=== PATIENT | male | born 1945 | race Caucasian/White ===

== ENCOUNTER 2025-06-01 04:33 | Inpatient (IN) | payer MEDICARE, SELFPAY ==
--- OUTSIDE RECORDS SUMMARY | 2020-07-20 04:00 | XMS_ITS | Continuity of Care Document ---
Author Organization [facility] [place] [address] [place] [address] Dr Nickerson [address] [place] [phone] Phone Care Team Providers Care Interactive Digital Media Specialist Name Role Phone Unavailable Unavailable Unavailable Allergies, Adverse Reactions, Alerts Substance Reaction Status Criticality No Known Allergies Active No Inform ation Medications Medication Instructions Dosage Effective Dates (start - stop) Status Comments prednisolone acetate 1 % eye drops,suspension instill 1 drop by ophthalmic route 4 times every day into operative eye for 2 weeks, then 2 times per day for 2 weeks, then stop - Active ketorolac 0.5 % eye drops instill 1 drop in operative eye 4 times every day for 2 weeks, then 2 times per day for 2 weeks, then stop - Active Vigamox 0.5 % eye drops instill 1 drop by ophthalmic route 4 times every day into operative eye for 2 weeks, then stop - No Longer Active ok to substitute Polytrim 5ml with same directions Procedures Procedure Date Post-op Follow-up Visit No Charge Refraction Post-op Follow-up Visit Remove Cataract, Post Op Care 0 Remove Cataract, Insert Lens,Comanaged O Steve Optic LensAR IOLMaster-Professional No Charge Refraction No Charge GDX Retina IOLMaster-Technical No Charge Orbscan Fundus Photography W/ Report Office/outpatient Visit, New Advance Directives Directive Yes / No Effective Date File Name No Information Encounters Encounter Description Practice Location Reason(s) For Visit Diagnoses Date Provider Providers Copied on Encounter [facility], [address] [place] [address] [address], [place], [place], [id number], tel:[phone] SEC [place] [employer] Professional Post-Op (chief complaint) Post op visit 0 No Information Referring Provider: Anshu Marshall OD, [employer] [address] [place] [address], [address]. tel:[phone] [facility], [address] [place] [address] [address], [place], [place], [id number], tel:[phone] SEC Javier SEPULVEDA Professional 1 week po Panoptix PCIOL OD (06/22/20) (chief complaint) Post op visit Jun- 0 No Information Referring Provider: Anshu Marshall OD, [employer] [address] [place] [address], [address]. tel:[phone] [facility], [address] [place] [address] [address], [place], [place], [id number], tel:[phone] SEC Javier SEPULVEDA Professional Post-Op (chief complaint) Post op visit Jun- 0 No Information Referring Provider: Anshu Marshall OD, [employer] [address] [place] [address], [address]. tel:[phone] [facility], [address] [place] [address] [address], [place], [place], [id number], [place] tel:[phone] [facility] No Information Jun- 0 Man Gomez. [address] [facility], [address], [place], [place], [id number], [place]. tel:[phone] Referring Provider: Anshu Marshall OD, [employer] [address] [place], [address]. tel:[phone] [facility], [address] [place] [address] [address], [place], [place], [id number], tel: SEC [facility] No Information 0 Man Gomez. [address] [facility], [facility] [place], [id number], . tel:1 Referring Provider: Anshu Marshall OD, [employer] [address] [place] [address], [address]. tel:[phone] [facility], [address] [place] [address] [address], [place], [place], [id number], tel: SEC Javier SEPULVEDA Professional No Information 0 Man Gomez. [address] [facility], [place], [place], [id number], . tel:[phone] Office/outpa tient Visit, [facility], [address] [place] [address] [address], [place], [place], [id number], tel: SEC Javier SEPULVEDA Professional Cataract evaluation (chief complaint) Combined forms of age-related cataract, bilateralVitr eous degeneration, left eyeHistory of eye injury 0 Man [address] [facility], [facility] [place], [id number], . tel: Referring Provider: Anshu Marshall OD, [employer] [address] [place] [address], [address]. tel:[phone] [facility], [address] [place] [address] [address], [place], [place], [id number], tel:[phone] SEC Javier SEPUL[employer] Professional No Information [address] Man Gomez[address] [facility], [facility] [place], [id number], . tel:[phone] Family History Family Member Type Diagnosis Age At Onset No Information Payers Payer name Insurance type Covered green party ID Authoriza tion(s) No Information Social History Type Description Quantity Date Captured Comments Alcohol Use Details moderate Caffeine Use Details No Tobacco Use Status Current non-smoker 20 Smoking Status Never smoker Non-Smoking Tobacco Use Details : No Details Available : No Details Available Sex Male Chief Complaint And Reason For Visit From encounter dated '07/20/2020 09:00'. Post-Op (chief complaint). Description: The 74 year old male presents for a 1 month post op CE withPanoptix IOL OD. Patient is using Pred and Ketorolac bid OD. Patient states OD is doing good. Reason For Referral Reason For Referral No Information Plan Of Treatment Date Type Action Status Patient Education Cataract Surgery: What to Expect at H~ completed History Of Present Illness Encounter Date Complaint History Of Prese nt Illness Post-Op The 74 year old male presents for a 1 month post op CE with Panoptix IOL OD. Patient is using Pred and Ketorolac bid OD. Patient states OD is doing good. 1 week po Panoptix P CIOL OD (06/22/20) The 74 year old male presents for evaluation of 1 week po Panoptix PCIOL OD (06/22/20) in the right eye. Pt reports good comfort and vision OD. Pt has been taking Pred, Ket, and Vig QID OD. Post-Op The 74 year old male presents for a 1 day post op CE with Panoptix IOL OD. Patient is using Pred, Vigamox and Ketorolac qid OD. Patient states OD feels scratchy today. Cataract evaluation The 74 year old male presents for evaluation of Cataract evaluation in the right > left. Hx of CAT OU. Pt denies any past ocular Sx, OU. Pt reports about 4 yrs ago he had a tree fall on him, broke ribs, vertebrae, and had 19 jaky in the back of his head. Pt reports he didn't have any VA changes immediately following that injury but about 1 yr after he started to have cloudiness that started at the top of his VA and progressed down over his VA in OD. Pt reports he has trouble reading street signs while driving, trouble recognizing people's faces, and trouble watching TV, OD>OS, x 3 yrs. Pt reports he doesn't use any gtts, OU. Functional Status Date Functional Assessmen t No Information Instructions Date Instruction Additional Infor riri Impression/Plan RTC in 3 weeks or sooner PRN Rel ated to Post op visit Impression/Plan Related to Post op visit Impression/Plan Impression/Plan Assessments Type Assessment Date assessment Post op visit Patient Care Teams Name Effective Dates (start - stop) Status Members No Information
--- OUTSIDE RECORDS SUMMARY | 2020-07-20 04:00 | XMS_ITS | Continuity of Care Document ---
Author Organization [facility] [place] [place] [address] [place] [address] Dr Nickerson [address] [place] [phone] Phone Care Team Providers Care Environmental Lead Name Role Phone Unavailable Unavailable Unavailable Allergies, [...] Diagnoses Date Provider Providers Copied on Encounter [facility], [address] [place] [address] [address], [place], [place], [id number], tel:[phone] SEC [place] [employer] Professional Post-Op (chief complaint) Post op visit 0 No Information Referring Provider: Anshu Marshall OD, [employer] [address] [place] [address], [address]. tel:[phone] [facility], [address] [place] [address] [address], [place], [place], [id number], tel:[phone] SEC Javier SEPULVEDA Professional 1 week po Panoptix PCIOL OD (06/22/20) (chief complaint) Post op visit Jun- 0 No Information Referring Provider: Anshu Marshall OD, [employer] [address] [place] [address], [address]. tel:[phone] [facility], [address] [place] [address] [address], [place], [place], [id number], tel:[phone] SEC Javier SEPULVEDA Professional Post-Op (chief complaint) Post op visit Jun- 0 No Information Referring Provider: Anshu Marshall OD, [employer] [address] [place] [address], [address]. tel:[phone] [facility], [address] [place] [address] [address], [place], [place], [id number], [place] tel:[phone] [facility] No Information Jun- 0 Man Gomez. [address] [facility], [place], [place], [address], [place]. tel:[phone] Referring Provider: Anshu Marshall OD, [employer] [address] [place], [address]. tel:[phone] [facility], [address] [place] [address] [address], [place], [place], [address], tel:0 SEC [employer] [facility] No Information 0 Man Gomez. [address] [facility], [facility], [id number], . tel:7 Referring Provider: Anshu Marshall OD, [employer] [address] [place] [address], [address]. tel:[phone] [facility], [address] [place] [address] [address], [place], [place], [address], tel: SEC Javier SEPULV[employer] Professional No Information 0 Man Gomez. [address] [facility], [place], [place], [address], . tel:[phone] Office/outpa tient Visit, [facility], [address] [place] [address] [address], [place], [place], [id number], tel: SEC Javier SEPULVEDA Professional Cataract evaluation (chief complaint) Combined forms of age-related cataract, bilateralVitr eous degeneration, left eyeHistory of eye injury 0 Man Gomez. [address] [facility], [facility] [place], [id number], . tel:2 Referring Provider: Anshu Marshall OD, [employer] [address] [place] [address], [address]. tel:[phone] [facility], [address] [place] [address] [address], [place], [place], [address], tel:[phone] SEC Javier [employer]UL[employer] Professional No Information 0 Man Gomez. [address] [facility], [facility], [id number], . tel:[phone] Family History Family Member Type Diagnosis Age At Onset No Information Payers Payer name Insurance type Covered democrat ID Authoriza tion(s) No Information Social History [...]
--- OUTSIDE RECORDS SUMMARY | 2020-07-20 04:00 | XMS_ITS | Continuity of Care Document ---
Author Organization [facility] [place] [address] [place] [address] Dr Nick[address] [place] [phone] Phone Care Team Providers Care Label Tacker Name Role Phone Unavailable Unavailable Unavailable Allergies, [...] Diagnoses Date Provider Providers Copied on Encounter [facility], [address] [place] [address] [address], [place], [place], [id number], tel:[phone] SEC [place] [employer] Professional Post-Op (chief complaint) Post op visit 0 No Information Referring Provider: Anshu Marshall OD, [employer] [address] [place] [address], [address]. tel:[phone] [facility], [address] [place] [address] [address], [place], [place], [id number], tel:[phone] SEC Javier SEPULVEDA Professional 1 week po Panoptix PCIOL OD (06/22/20) (chief complaint) Post op visit Jun- 0 No Information Referring Provider: Anshu Marshall OD, [employer] [address] [place] [address], [address]. tel:[phone] [facility], [address] [place] [address] [address], [place], [place], [id number], tel:[phone] SEC Javier SEPULVEDA Professional Post-Op (chief complaint) Post op visit Jun- 0 No Information Referring Provider: Anshu Marshall OD, [employer] [address] [place] [address], [address]. tel:[phone] [facility], [address] [place] [address] [address], [place], [place], [id number], [place] tel:[phone] [facility] No Information Jun- 0 Man Gomez. [address] [facility], [address], [place], [place], [address], [place]. tel:[phone] Referring Provider: Anshu Marshall OD, [employer] [address] [place], [address]. tel:[phone] [facility], [address] [place] [address] [address], [place], [place], [address], tel:1 SEC [facility] No Information 0 Man Gomez. [address] [facility], [facility], [address], . tel:1 Referring Provider: Anshu Marshall OD, [employer] [address] [place] [address], [address]. tel:[phone] [facility], [address] [place] [address] [address], [place], [place], [id number], tel: SEC Javier [employer] Professional No Information 0 Man Gomez. [address] [facility], [place], [place], [address], . tel:3 Office/outpa tient Visit, [facility], [address] [place] [address] [address], [place], [place], [id number], tel: SEC Javier SEPULVEDA Professional Cataract evaluation (chief complaint) Combined forms of age-related cataract, bilateralVitr eous degeneration, left eyeHistory of eye injury 0 Man Gomez. [address] [facility], [facility] [place], [address], . tel:5 Referring Provider: Anshu Marshall OD, [employer] [address] [place] [address], [address]. tel:[phone] [facility], [address] [place] [address] [address], [place], [place], [address], tel:0 SEC [facility] [employer] Professional No Information 0 Man Gomez. [address] [facility], [facility] [place], [id number], . tel:[phone] Family History Family Member Type Diagnosis Age At Onset No Information Payers Payer name Insurance type Covered constitution party ID Authoriza tion(s) No Information Social [...]
[2025-06-01] VITALS (22 sets, daily range): BP systolic 94–131; BP diastolic 54–83; PULSE 80–103; RESP 19–39; TEMP 36.3–36.9; O2SAT 91–97; BMI 34.5
--- NOTE | ~2025-06-01 | CT_ITS ---
EXAMINATION: CT brain wo magi, 06/01/2025 5:10 CDT HISTORY: CONFUSION COMPARISON: No comparisons available. Technique: Axial images obtained of the brain without contrast. One or more of the following dose reduction techniques were used: automated exposure control, adjustment of the mA and/or kV according to patient size, use of iterative reconstruction technique. 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 No acute infarct or hemorrhage Minimal left mastoid effusion. Severe right opacification of the right maxillary and frontal sinuses, underlying polyp formation suspected. No acute fracture. No significant facial or scalp soft tissue swelling evident. No radiopaque foreign body is seen. Impression: 1.No acute intracranial abnormality. Reviewed, dictated and finalized at location A. Impression: 1.No acute intracranial abnormality.
--- NOTE | ~2025-06-01 | XR_ITS ---
Examination: XR chest 1V portable Clinical History: Confused Comparison: 02/16/2017 Technique: Portable AP Findings: Cardiomegaly. Lungs clear. No acute bony abnormality. Chronic right rib fractures. IMPRESSION: 1. No acute cardiopulmonary findings given portable technique. Reviewed, dictated and finalized at location R.
--- OUTSIDE RECORDS SUMMARY | 2025-06-01 04:35 | XMS_ITS | Clinical Summary ---
Author Organization [facility] Address [address] [facility] [place] [address] Care Team Providers Care Bass Fisher Name Role Phone Neftalytaco Ramesh BYERS Primary Care Provider [phone] Source Comments [facility],non-owned Affiliates and Associated Physician Practices is amultiple site organization consisting of ambulatory clinics and hospital sitesin [place], [place], [place] and [place]. This disclosure is being madepursuant to the Care Everywhere program and may not contain all information available regarding this patient. Last updated 18.[facility] Allergies Active Allergy Reactions Criticality Noted Date Comments Amlodipine Base Nausea and/or Vomiting,Swelling,Dizziness 03/30/2024 Aspirin Swelling,Skin Reactions 03/30/2024 Tomato Urticaria,Swelling Medium 03/30/2024 Medications * Be aware that medications may not be up to date on this document. Alwaysverify current medications with the patient. aspirin (Aspirin) 81 MG chew tablet Take 1 (one) tablet by mouth once daily 4 Active atorvastatin (Lipitor) 40 MG tablet Take 1 (one) tablet by mouth at bedtime 4 Active carvedilol (Coreg) 12.5 MG tablet Take 1 (one) tablet by mouth 2 times daily with morning and evening meal 4 Active polyethylene glycol 3350 (Miralax) 17 g packet Take 17 (seventeen) g by mouth once daily as needed for Constipation 4 Active clopidogrel (plaVIX) 75 MG tablet Take 1 (one) tablet by mouth once daily 4 Active lisinopril (Prinivil; Zestril) 40 MG tablet TAKE ONE TABLET BY MOUTH ONCE DAILY 30 tablet 2 4 Active Active Problems Problem Noted Date Diagnosed Date Ischemic stroke 03/30/2024 Aphasia 03/29/2024 Encephalopathy 03/29/2024 Hypertensive emergency 03/29/2024 Umbilical hernia 03/29/2024 Social History Tobacco Use Types Packs/Day Years Used Date Smoking Tobacco: Unknown Tobacco Cessation:Counseling Given: Not Answered Alcohol Use Standard Drinks/Week Comments Not Currently 0 (1 standard drink = 0.6 oz pur e alcohol) Sex and Gender Information Value Date Recorded Sex Assigned at Not on file Legal Sex Male 6:34 PM CDT Gender Identity Not on file Sexual Orientation Not on file Last Filed Vital Signs Vital Sign Reading Time Taken Comments Blood Pressure 201/98 04/02/2024 7:45 PM CDT Pulse 55 04/02/2024 7:45 PM CDT Temperature 36.3 C (97.4 F) 04/02/2024 3:26 PM CDT Respiratory Rate 18 04/02/2024 3:26 PM CDT Oxygen Saturation 92% 04/02/2024 3:26 PM CDT Inhaled Oxygen Concentration - - Weight 113.4 kg (250 lb) 03/31/2024 7:00 AM CDT Height 182.9 cm (6') 03/31/2024 7:00 AM CDT Body Mass Index 33.91 03/31/2024 7:00 AM CDT Plan of Treatment Health Maintenance Due Date Last Done Comments MEDICARE AWV 12 MONTHS 1945 HEPATITIS C SCREENING 11/03/1965 DTAP/TDAP/TD VACCINES (1 - Tdap) 11/07/1966 PNEUMOCOCCAL VACCINE 50+ (1 of 1 - PCV) 11/07/1997 ZOSTER VACCINE (1 of 2) 11/07/1997 Respiratory Syncytial Virus (RSV) Vaccine Pt: or over 60 yrs (1 - 1-dose 75+ series) 11/07/2022 DEPRESSION SCREENING 09/09/2024 COVID-19 VACCINE ( - 2023-2 5 season) 2025 INFLUENZA VACCINE (#1) 2025 HEPATITIS B VACCINE Aged Out No longe r eligible based on patient's age to complete this topic HIB VACCINE Aged Out No longer eligi ble based on patient's age to complete this topic HPV VACCINE Aged Out No longer eligi ble based on patient's age to complete this topic MENINGOCOCCAL (Group B) VACC INE SHARED DECISION-MAKING Aged Out No longer eligibl e based on patient's age to complete this topic MENINGOCOCCAL GROUPS A/C/Y/W VACCINE Aged Out No longer eligible b ased on patient's age to complete this topic Insurance MEDICARE MEDICARE SUPPLEMENT PAYOR GENERIC Advance Directives * Full Code (Latest Code Status on File) Date Activated Date Inactivated Comments 04/03/2024 3:46 PM 04/24/2024 5:19 PM * Full Code Date Activated Date Inactivated Comments 03/29/2024 7:21 PM 04/02/2024 9:57 PM Care Teams Bass Fisher Relationship Specialty Start Date End Date Ramesh Forbes DO [address] [place] [address] PCP - General Family Medicine 04/02/24
--- OUTSIDE RECORDS SUMMARY | 2025-06-01 04:35 | XMS_ITS | Clinical Summary ---
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 Gender Identity Not on file Sexual Orientation Not on file Plan of Treatment Health Maintenance Due Date Last Done Comments Hepatitis C 11/07/1965 DTaP, Tdap and Td Vaccines ( 1 - Tdap) 11/07/1966 Pneumococcal Vaccine: 50+ Ye ars (1 of 1 - PCV) 11/07/1997 Zoster Vaccines (1 of 2) 11/07/1997 RSV Immunization or 60+ Years (1 - 1-dose 75+ series) 11/07/2022 COVID-19 Vaccine ( - 2023-2 5 season) 2025 Meningococcal B Vaccine Aged Out No l onger eligible based on patient's age to complete this topic Meningococcal Vaccine Aged Out No jn yossi eligible based on patient's age to complete this topic RSV Immunizations Under 20 Months Aged Out No longer eligible based on patient's age to complete this topic
--- NOTE | 2025-06-01 04:41 | ECG_ITS ---
Test Date: 2025-06-01 04:30:13 Measurements Intervals [place] Rate: 97 P: 34 WV: 243 QRS: -65 QRSD: 141 T: 109 QT: 389 QTc: 494 Interpretive Statements SINUS RHYTHM WITH FIRST DEGREE AV BLOCK LEFT ATRIAL ENLARGEMENT [-0.15mV P-WAVE IN V1/V2] LEFT ANTERIOR FASCICULAR BLOCK RIGHT BUNDLE BRANCH BLOCK [120+ ms QRS DURATION, UPRIGHT V1, 40+ ms S IN LEFT VENTRICULAR HYPERTROPHY ABNORMAL ECG No previous ECG available for comparison Electronically Signed On 06-01-2025 12:44:41 CDT by Job Gerardo M.D.
--- NOTE | 2025-06-01 04:43 | ED.AMS ---
HPI - Altered Mental Status General Chief Complaint: Altered Mental Status <Fredi Sin MD - Last Filed: 06/01/25 04:49> Stated Complaint: altered mental status <Fredi Sin MD - Last Filed: 06/01/25 04:49> Time Seen by Provider: 06/01/25 04:41 <Fredi Sin MD - Last Filed: 06/01/25 04:49> Source: EMS <Fredi Sin MD - Last Filed: 06/01/25 04:49> Mode of arrival: EMS <Fredi Sin MD - Last Filed: 06/01/25 04:49> Limitations: clinical condition <Fredi Sin MD - Last Filed: 06/01/25 04:49> History of Present Illness HPI narrative: 79-year-old with a history of stroke was brought in from home by EMS with a complains of altered mental status since yesterday afternoon reports he has been very lethargic all afternoon not responding very well to verbal stimuli from middle of the night finally called 911. Upon their arrival patient was found to be hypertensive after bolus of 600 mL he is now more alert. Not much of history can be obtained from patient <Fredi Sin MD - Last Filed: 06/01/25 04:49> MD complaint: altered mental status <Fredi Sin MD - Last Filed: 06/01/25 04:49> Onset (ago): day(s) (1) <Fredi Sin MD - Last Filed: 06/01/25 04:49> Time: 12:00 <Fredi Sin MD - Last Filed: 06/01/25 04:49> Timing confirmed by: spouse <Fredi Sin MD - Last Filed: 06/01/25 04:49> Severity: moderate <Fredi Sin MD - Last Filed: 06/01/25 04:49> Consistency of symptoms: constant <Fredi Sin MD - Last Filed: 06/01/25 04:49> Related Data Home Medications: Home Medications ?Medication ?Instructions ?Recorded ?Confirmed ?Last Taken ?Type No Home Medications 05/31/20 05/31/20 Unknown History <Fredi Sin MD - Last Filed: 06/01/25 04:49> Allergies/Adverse Reactions: Allergies Allergy/AdvReac Type Severity Reaction Status Date / Time tramadol Allergy Unknown Unknown Verified 06/01/25 05:00 aspirin AdvReac Severe Abdominal Verified 06/01/25 05:00 Pain <Fredi Sin MD - Last Filed: 06/01/25 04:49> Review of Systems Review of Systems: ROS unobtainable: Yes unobtainable due to mental status <Fredi Sni MD - Last Filed: 06/01/25 04:49> PMFSH Past Medical History Medical History: Medical History Benign essential hypertension No active medical problems <Fredi Sin MD - Last Filed: 06/01/25 04:49> Surgical History Surgical History: Surgical History No history of previous surgery <Fredi Sin MD - Last Filed: 06/01/25 04:49> Social History Social History: Social History Smoking status: Never smoker <Fredi Sin MD - Last Filed: 06/01/25 04:49> Exam Narrative: GENERAL:, well-nourished, and in no acute distress. HEAD: Normocephalic, atraumatic. EYES: PERRLA and EOMI. ENT: Nares clear, no rhinorrhea or epistaxis. Mucous membranes moist. NECK: Supple. CHEST: Clear to auscultation. No respiratory distress. HEART: Regular rate and rhythm. No murmur heard. Normal peripheral pulses. ABDOMEN: Soft, nontender, nondistended, normal active bowel sounds. has umbilical hernia EXTREMITIES: Normal range of motion. No edema. SKIN: Warm, dry, no rash. NEURO: No focal deficits. Alert <Fredi Sin MD - Last Filed: 06/01/25 04:49> Course Vital Signs Vital signs: Vital Signs Temperature 36.9 C 06/01/25 04:35 Pulse Rate 103 H 06/01/25 04:35 Respiratory Rate 28 H 06/01/25 04:35 Blood Pressure 116/73 06/01/25 04:35 Pulse Oximetry 94 06/01/25 04:35 Oxygen Delivery Nasal Cannula 06/01/25 04:35 Oxygen Flow Rate 2 06/01/25 04:35 Temperature 36.9 C 06/01/25 04:35 Pulse Rate 93 06/01/25 06:00 Respiratory Rate 33 H 06/01/25 06:00 Blood Pressure 114/79 06/01/25 06:00 Pulse Oximetry 94 06/01/25 06:00 Oxygen Delivery Nasal Cannula 06/01/25 04:35 Oxygen Flow Rate 2 06/01/25 04:35 <Fredi Sin MD - Last Filed: 06/01/25 04:49> Vital Signs Temperature 36.9 C 06/01/25 04:35 Pulse Rate 103 H 06/01/25 04:35 Respiratory Rate 28 H 06/01/25 04:35 Blood Pressure 116/73 06/01/25 04:35 Pulse Oximetry 94 06/01/25 04:35 Oxygen Delivery Nasal Cannula 06/01/25 04:35 Oxygen Flow Rate 2 06/01/25 04:35 Temperature 36.9 C 06/01/25 04:35 Pulse Rate 93 06/01/25 06:00 Respiratory Rate 33 H 06/01/25 06:00 Blood Pressure 114/79 06/01/25 06:00 Pulse Oximetry 94 06/01/25 06:00 Oxygen Delivery Nasal Cannula 06/01/25 04:35 Oxygen Flow Rate 2 06/01/25 04:35 <Escobar Ramos MD - Last Filed: 06/01/25 07:57> MDM - Altered Mental Status MDM Narrative Medical decision making narrative: patient was signed out to me at 5:00 a.m. Blood workup showed WBC 18.0, BUN 37, creatinine 3.8, lactic acid 4.0 This urinalysis showed 1+ leukocyte Estrace, WBC 16-20, 4+ bacteria CT head without contrast showed no acute abnormality Chest x-ray showed <Escobar Ramos MD - Last Filed: 06/01/25 07:57> Differential Diagnosis Differential diagnosis: Likely altered mental status, delirium, hyponatremia and sepsis <Fredi Sin MD - Last Filed: 06/01/25 04:49> Medical Records Attestation: I reviewed the patient's medical records. <Fredi Sin MD - Last Filed: 06/01/25 04:49> Lab Data Result diagrams: 06/01/25 04:54 06/01/25 04:54 <Fredi Sin MD - Last Filed: 06/01/25 04:49> Labs: Lab Results 06/01/25 06/01/25 Range/Units 04:54 05:34 WBC 18.0 H (4.8-10.8) K/mm3 RBC 3.84 L (4.70-6.10) M/mm3 Hgb 11.8 L (12.4-15.3) g/dL Hct 35.3 L (37.0-46.0) % MCV 91.9 (78.0-102.0) fL MCH 30.7 (27.0-31.0) pg MCHC 33.4 (32-36) g/dL RDW 13.1 (11.6-14.4) % Plt Count 186 (150-420) K/mm3 MPV 9.6 (8.7-11.0) fl Immature Gran % (Auto) Not Reportable Neut % (Auto) Not Reportable Lymph % (Auto) Not Reportable [place] % (Auto) Not Reportable Eos % (Auto) Not Reportable Baso % (Auto) Not Reportable Lymph # (Auto) Not Reportable [place] # (Auto) Not Reportable Eos # (Auto) Not Reportable Baso # (Auto) Not Reportable Abs Immat Gran (auto) Not Reportable Absolute Neuts (auto) Not Reportable Absolute Nucleated RBC Not Reportable Neutrophils % (Manual) 91 H (46-73) % Band Neutrophils % 0 (0-6) % Lymphocytes % (Manual) 4 L (18-44) % Monocytes % (Manual) 5 (3-9) % Eosinophils % (Manual) 0 L (1-6) % Basophils % (Manual) 0 (0-1) % Nucleated RBC % Not Reportable Abs Neuts (Manual) 16.38 H (1.3-6.7) K/mm3 Abs Lymphs (Manual) 0.72 L (1.1-4.5) K/mm3 Abs Monocytes (Manual) 0.90 (0.1-0.90) K/mm3 Absolute Eos (Manual) 0.00 L (0.02-0.50) K/mm3 Abs Basophils (Manual) 0.00 (0-0.1) K/mm3 Platelet Estimate Adequate (Adequate) Schistocytes Not Reportable PT 11.4 (9.50-12.1) Seconds INR 1.0 APTT 31.2 H (23.9-30.70) Sec Sodium 142 (137-145) mmol/L Potassium 4.5 (3.4-5.0) mmol/L Chloride 108 H (98-107) mmol/L Carbon Dioxide 21 L (22-30) mmol/L Anion Gap 13 H (4-12) mmol/L BUN 37 H (9-20) mg/dL Creatinine 3.80 H (0.7-1.3) mg/dL Estim Creat Clear Calc Not Reportable Estimated GFR 16 L (59 - ) Glucose 110 (65-110) mg/dL Calculated Osmolality 303 H (285-295) mOsm/kg Lactic Acid 4.0 H (0.4-2.0) mmol/L Calcium 8.8 (8.4-10.2) mg/dL Total Bilirubin 1.2 (0.2-1.3) mg/dL AST 68 H (17-59) U/L ALT 40 (6-50) U/L Alkaline Phosphatase 99 (38-126) U/L Troponin I 1.180 H* (0.000-0.034) ng/mL C-Reactive Protein > 9.0 H (<1.0) mg/dL Total Protein 7.1 (6.3-8.2) g/dL Albumin 3.5 (3.5-5.1) g/dL Urine Color Light yellow (Yellow) Urine Appearance Clear (Clear) Urine pH 5.5 (5.0-8.0) Ur Specific [place] 1.015 (1.010-1.020) Urine Protein Negative (Negative) Urine Glucose (UA) Negative (Negative) Urine Ketones Negative (Negative) Ur Blood (Man) Trace-intact H (Negative) Urine Nitrate Negative (Negative) Urine Bilirubin Negative (Negative) Urine Urobilinogen 0.2 (0.2-1.0) mg/dL Leukocyte Esterase Rfl 1+ H (Negative) ASHISH/UL Urine RBC 3-5 H (0-2) /hpf Urine WBC 16-20 H (0-3) /hpf Ur Squamous Epith Cells None seen (Few) /hpf Urine Bacteria 4+ H (None) /hpf <Fredi Sin MD - Last Filed: 06/01/25 04:49> Lab Results 06/01/25 06/01/25 Range/Units 04:54 05:34 WBC 18.0 H (4.8-10.8) K/mm3 RBC 3.84 L (4.70-6.10) M/mm3 Hgb 11.8 L (12.4-15.3) g/dL Hct 35.3 L (37.0-46.0) % MCV 91.9 (78.0-102.0) fL MCH 30.7 (27.0-31.0) pg MCHC 33.4 (32-36) g/dL RDW 13.1 (11.6-14.4) % Plt Count 186 (150-420) K/mm3 MPV 9.6 (8.7-11.0) fl Immature Gran % (Auto) Not Reportable Neut % (Auto) Not Reportable Lymph % (Auto) Not Reportable [place] % (Auto) Not Reportable Eos % (Auto) Not Reportable Baso % (Auto) Not Reportable Lymph # (Auto) Not Reportable [place] # (Auto) Not Reportable Eos # (Auto) Not Reportable Baso # (Auto) Not Reportable Abs Immat Gran (auto) Not Reportable Absolute Neuts (auto) Not Reportable Absolute Nucleated RBC Not Reportable Neutrophils % (Manual) 91 H (46-73) % Band Neutrophils % 0 (0-6) % Lymphocytes % (Manual) 4 L (18-44) % Monocytes % (Manual) 5 (3-9) % Eosinophils % (Manual) 0 L (1-6) % Basophils % (Manual) 0 (0-1) % Nucleated RBC % Not Reportable Abs Neuts (Manual) 16.38 H (1.3-6.7) K/mm3 Abs Lymphs (Manual) 0.72 L (1.1-4.5) K/mm3 Abs Monocytes (Manual) 0.90 (0.1-0.90) K/mm3 Absolute Eos (Manual) 0.00 L (0.02-0.50) K/mm3 Abs Basophils (Manual) 0.00 (0-0.1) K/mm3 Platelet Estimate Adequate (Adequate) Schistocytes Not Reportable PT 11.4 (9.50-12.1) Seconds INR 1.0 APTT 31.2 H (23.9-30.70) Sec Sodium 142 (137-145) mmol/L Potassium 4.5 (3.4-5.0) mmol/L Chloride 108 H (98-107) mmol/L Carbon Dioxide 21 L (22-30) mmol/L Anion Gap 13 H (4-12) mmol/L BUN 37 H (9-20) mg/dL Creatinine 3.80 H (0.7-1.3) mg/dL Estim Creat Clear Calc Not Reportable Estimated GFR 16 L (59 - ) Glucose 110 (65-110) mg/dL Calculated Osmolality 303 H (285-295) mOsm/kg Lactic Acid 4.0 H (0.4-2.0) mmol/L Calcium 8.8 (8.4-10.2) mg/dL Total Bilirubin 1.2 (0.2-1.3) mg/dL AST 68 H (17-59) U/L ALT 40 (6-50) U/L Alkaline Phosphatase 99 (38-126) U/L Troponin I 1.180 H* (0.000-0.034) ng/mL C-Reactive Protein > 9.0 H (<1.0) mg/dL Total Protein 7.1 (6.3-8.2) g/dL Albumin 3.5 (3.5-5.1) g/dL Urine Color Light yellow (Yellow) Urine Appearance Clear (Clear) Urine pH 5.5 (5.0-8.0) Ur Specific [place] 1.015 (1.010-1.020) Urine Protein Negative (Negative) Urine Glucose (UA) Negative (Negative) Urine Ketones Negative (Negative) Ur Blood (Man) Trace-intact H (Negative) Urine Nitrate Negative (Negative) Urine Bilirubin Negative (Negative) Urine Urobilinogen 0.2 (0.2-1.0) mg/dL Leukocyte Esterase Rfl 1+ H (Negative) ASHISH/UL Urine RBC 3-5 H (0-2) /hpf Urine WBC 16-20 H (0-3) /hpf Ur Squamous Epith Cells None seen (Few) /hpf Urine Bacteria 4+ H (None) /hpf <Escobar Ramos MD - Last Filed: 06/01/25 07:57> ECG Data EKG #1: ECG completion date: 06/01/25 <Fredi Sin MD - Last Filed: 06/01/25 04:49> ECG completion time: 04:30 <Fredi Sin MD - Last Filed: 06/01/25 04:49> EKG Interpretation: normal rate (97), no ectopy, no ST changes and LBBB <Fredi Sin MD - Last Filed: 06/01/25 04:49> Discharge Plan Discharge Clinical Impression: Non-ST elevation (NSTEMI) myocardial infarction, Renal failure, Sepsis, Comfort measures only status AMS (altered mental status) Qualifiers: Altered mental status type: unspecified Qualified Code(s): R41.82 - Altered mental status, unspecified <Fredi Sin MD - Last Filed: 06/01/25 04:49> Patient Disposition: Still a Patient <Fredi Sin MD - Last Filed: 06/01/25 04:49> Condition: Critical <Fredi Sin MD - Last Filed: 06/01/25 04:49> Additional Instructions: ADMIT TO HOSPITAL <Fredi Sin MD - Last Filed: 06/01/25 04:49> Patient Language: Slovak <Fredi Sin MD - Last Filed: 06/01/25 04:49> Prescriptions: No Action No Home Medications <Fredi Sin MD - Last Filed: 06/01/25 04:49> Follow-up/Referrals: UNKNOWN,DOCTOR [Primary Care Provider] <Fredi Sin MD - Last Filed: 06/01/25 04:49>
[2025-06-01 04:59] LABS: Hematocrit 35.3 % (37.0-46.0); Hemoglobin 11.8 g/dL (12.4-15.3); Mean Corpuscular HGB Conc 33.4 g/dL (32-36); Mean Corpuscular Hemoglobin 30.7 pg (27.0-31.0); Mean Corpuscular Volume 91.9 fL (78.0-102.0); Platelet Count Result 186 K/mm3 (150-420); Red Blood Count 3.84 M/mm3 (4.70-6.10); White Blood Count 18.0 K/mm3 (4.8-10.8)
[2025-06-01 05:10] LABS: Alanine Aminotransferase 40 U/L (6-50); Albumin Level 3.5 g/dL (3.5-5.1); Alkaline Phosphatase 99 U/L (38-126); Anion Gap 13 mmol/L (4-12); Aspartate Amino Transferase 68 U/L (17-59); Band Neutrophils Percent 0 % (0-6); Basophils Absolute Manual 0.00 K/mm3 (0-0.1); Basophils Percent Manual 0 % (0-1); Bilirubin,Total 1.2 mg/dL (0.2-1.3); Blood Urea Nitrogen 37 mg/dL (9-20); Calcium 8.8 mg/dL (8.4-10.2); Carbon Dioxide 21 mmol/L (22-30); Chloride 108 mmol/L (98-107); Eosinophils Absolute Manual 0.00 K/mm3 (0.02-0.50); Eosinophils Percent Manual 0 % (1-6); Estimated Glomerular Filt Rate 16; Glucose 110 mg/dL (65-110); Lymphocytes Absolute Manual 0.72 K/mm3 (1.1-4.5); Lymphocytes Percent Manual 4 % (18-44); Monocytes Absolute Manual 0.90 K/mm3 (0.1-0.90); Monocytes Percent Manual 5 % (3-9); Neutrophils Absolute Manual 16.38 K/mm3 (1.3-6.7); Neutrophils Percent Manual 91 % (46-73); Osmolality Calculated 303 mOsm/kg (285-295); Potassium 4.5 mmol/L (3.4-5.0); Sodium 142 mmol/L (137-145); Total Protein 7.1 g/dL (6.3-8.2)
[2025-06-01 05:19] LABS: INR 1.0; Prothrombin Time 11.4 Seconds (9.50-12.1)
--- OUTSIDE RECORDS SUMMARY | 2025-06-01 05:40 | XMS_ITS | Clinical Summary ---
Author Organization [facility] Address [address] [place] [address] Care Team Providers Care Manager Ship Name Role Phone Ramesh Forbes Primary Care Provider [phone] Allergies No known active allergies Medications aspirin 81 MG chewable tabletIndicati ons:Cerebrovas cular Accident Chew 1 tablet (81 mg total) in the morning. Indications: Cerebrovascular Accident or Stroke. 04/24/20 24 Active atorvastatin (LIPITOR) 40 MG tablet Take 1 tablet (40 mg total) by mouth nightly. 30 tablet 04/24/20 24 Active carvedilol (COREG) 6.25 MG tablet Take 1 tablet (6.25 mg total) by mouth 2 (two) times a day with Breakfast and Dinner. 60 tablet 04/24/20 24 Active cloNIDine (CATAPRES-TTS) 0.2 MG/24HR patch weekly Place 1 patch (0.2 mg total) on the skin once a week. 4 patch 04/26/20 24 Active clopidogrel (PLAVIX) 75 MG tabletIndicati ons:Cerebrovas cular Accident Take 1 tablet (75 mg total) by mouth in the morning. Indications: Cerebrovascular Accident or Stroke. 30 tablet 04/24/20 24 Active hydrALAZINE (APRESOLINE) 25 MG tablet Take 3 tablets (75 mg total) by mouth every 8 (eight) hours. 90 tablet 04/24/20 24 Active lisinopril (ZESTRIL) 40 MG tablet Take 1 tablet (40 mg total) by mouth in the morning. 30 tablet 04/24/20 24 Active vitamin B-6 (B-6) 50 MG tablet 1 tablet (50 mg total) by PO/Per Tube route in the morning. 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 04/03/2024 Hypertension 04/03/2024 Acute myocardial injury 04/03/2024 Metabolic encephalopathy 04/03/2024 Immunizations Immunization Administration Dates Next Due Pfizer SARS-CoV-2 Vaccination ([place]) 024(Deferred: Not available) Social History Tobacco Use Types Packs/Day Years Used Date Smoking Tobacco: Unknown Tobacco Cessation:Counseling Given: Not Answered Alcohol Use Standard Drinks/Week Comments Defer 0 (1 standard drink = 0.6 oz pur e alcohol) [facility] Utilities Answer Date Recorded In the past 12 months has [employer] electric, gas, oil, or water company threatened to shut off services in your home? No 04/02/2024 Social Connection and Isolat ion Panel [NHANES] Answer Date Recorded In a typical week, how many times do you talk on the phone with family, friends, or neighbors? Three times a week 04/02/2024 How often do you get togethe r with friends or relatives? Three times a week 04/02/2024 How often do you attend chur ch or nondenominational services? More than 4 times per year 04/02/2024 Do you belong to any clubs o r organizations such as muslim groups, unions, fraternal or athletic groups, or school groups? Yes 04/02/2024 How often do you attend meet ings of the clubs or organizations you belong to? More than 4 times per year 04/02/2024 Are you , , di vorced, , never , or living with a partner? 04/02/2024 AUDIT-C Answer Date Recorded Q1: How often do you have a drink containing alc ohol? Patient declined 04/04/2024 Q2: How many drinks containi ng alcohol do you have on a typical day when you are drinking? Patient declined 04/04/2024 Q3: How often do you have si x or more drinks on one occasion? Patient declined 04/04/2024 Overall Financial Resource Strain (CARDIA) Answe r Date Recorded How hard is it for you to pa y for the very basics like food, housing, medical care, and heating? Not hard at all 04/02/2024 [facility] Occupat ional Health - Occupational Stress Questionnaire Answer Date Recorded Do you feel stress - tense, restless, nervous, or anxious, or unable to sleep at night because your mind is troubled all the time - these days? Not at all 04/24/2024 Hunger Vital Sign Answer Date Recorded Within the past 12 months, y ou worried that your food would run out before you got the money to buy more. Never true 04/02/20 24 Within the past 12 months, t he food you bought just didn't last and you didn't have money to get more. Never true 04/02/2024 Housing Stability Vital Sign Answer Charles e Recorded In the last 12 months, was t here a time when you were not able to pay the mortgage or rent on time? No 04/02/2024 In the past 12 months, how m any times have you moved where you were living? 1 04/02/2024 At any time in the past 12 m [facility], were you homeless or living in a skilled nursing (including now)? No 04/02/2024 Domestic Abuse Assessment Answer Date R ecorded Do you feel safe in your relationships at home? Yes 04/04/2024 Physical Abuse Denies 04/04/2024 HRSN Domestic Abuse - Type of Abuse Not on file 04/04/2024 HRSN Domestic Abuse - Time Frame Not on file 04/04/2024 HRSN Domestic Abuse - Signs and Symptoms Not on file 04/04/2024 Verbal Abuse Denies 04/04/2024 HRSN Domestic Abuse - Reported To Not on file 04/04/2024 SDOH Transportation Source Answer Da te Recorded Has lack of transportation k ept you from medical appointments or from getting medications? No 04/23/2024 Has lack of transportation k ept you from meetings, work, or from getting things needed for daily living? No 04/23/2024 HRSN Depression PHQ-2 Answer Date Recor ded Feeling down, depressed, or hopeless 0 04/24/2024 Little interest or pleasure in doing things 0 04/24/2024 Sex and Gender Information Value Date Recorded Sex Assigned at Not on file Legal Sex Male 3:31 PM EDT Gender Identity Not on file Sexual Orientation Not on file Last Filed Vital Signs Vital Sign Reading Time Taken Comments Blood Pressure 150/85 04/24/2024 3:14 PM CDT Pulse 52 04/24/2024 3:14 PM CDT Temperature 36.1 C (97 F) 04/24/2024 12:28 PM CDT Respiratory Rate 18 04/24/2024 12:28 PM CDT Oxygen Saturation 95% 04/24/2024 12:28 PM CDT Inhaled Oxygen Concentration - - Weight 113.4 kg (250 lb) 04/02/2024 9:45 PM CDT Height 182.9 cm (6') 04/02/2024 9:45 PM CDT Body Mass Index 33.91 04/02/2024 9:45 PM CDT Plan of Treatment Health Maintenance Due Date Last Done Comments Annual Visit Topic 11/07/1946 Hepatitis C Screening 11/07/1965 DTaP/Tdap/Td Vaccines (1 - Tdap) 11/07/1966 Pneumococcal Vaccine: 65+ Ye ars (1 of 2 - PCV) 11/07/1997 HIB Vaccines Aged Out No longer eligi ble based on patient's age to complete this topic HPV Vaccines Aged Out No longer eligi ble based on patient's age to complete this topic Hepatitis A Vaccines Aged Out No long er eligible based on patient's age to complete this topic Hepatitis B Vaccines Aged Out No long er eligible based on patient's age to complete this topic IPV Vaccines Aged Out No longer eligi ble based on patient's age to complete this topic Meningococcal Vaccine Aged Out No jn yossi eligible based on patient's age to complete this topic Advance Directives * Full Resuscitation (Latest Code Status on File) Date Activated Date Inactivated Comments 04/02/2024 10:43 PM 04/24/2024 7:24 PM Question Answer Comments I have discussed this order with the patient or his/her surrogate and have received informed consent. Yes Care Teams Manager Ship Relationship Specialty Start Date End Date Ramesh Forbes [address] [place] [address] PCP - General 04/02/24
--- OUTSIDE RECORDS SUMMARY | 2025-06-01 05:40 | XMS_ITS | Clinical Summary ---
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
--- OUTSIDE RECORDS SUMMARY | 2025-06-01 05:40 | XMS_ITS | Clinical Summary ---
Author Organization [facility] [employer] Address [address] [facility] [place] [address] Care Team Providers Care Order Taker Name Role Phone Neftalytaco Ramesh BYERS Primary Care Provider [phone] Source Comments [facility] [employer],non-owned Affiliates and Associated Physician Practices is amultiple site organization consisting of ambulatory clinics and hospital sitesin [place], [place], [place] and [place]. This disclosure is being madepursuant to the Care Everywhere program and may not contain all information available regarding this patient. Last updated 18.[facility] [employer] Allergies Active Allergy Reactions Criticality Noted Date [...] 7:21 PM 04/02/2024 9:57 PM Care Teams Order Taker Relationship Specialty Start Date End Date Ramesh Forbes DO [address] [place] [id number] PCP - General Family Medicine 04/02/24
--- OUTSIDE RECORDS SUMMARY | 2025-06-01 05:41 | XMS_ITS | Clinical Summary ---
Author Organization [facility] Address [address] [place] [address] Phone Care Team Providers Care Data Analytics Specialist Name Role Phone Ramesh Forbes MD Primary Care Provider [phone] Social History Tobacco Use Types Packs/Day Years Used Date Smoking Tobacco: Never Assessed Sex and Gender Information Value Date Recorded Sex Assigned at Not on file Legal Sex Male 1:20 PM CDT Gender Identity Not on file Sexual Orientation Not on file Plan of Treatment Not on file Insurance MEDICARE Care Teams Data Analytics Specialist Relationship Specialty Start Date End Date Ramesh Forbes MD [address] [place] [id number] PCP - General Family Medicine 04/21/24
[2025-06-01] MEDS: SODIUM CHLORIDE 0.9% IV 1,000 ML 150 ML IV CONT (05:45)
[2025-06-01] MEDS: fentaNYL CITRATE INJ (*CRX) 100 MCG/2 ML VIAL 25 MCG IV PUSH (05:47)
[2025-06-01] MEDS: cefTRIAXone 1 GM in SODIUM CHLORIDE 0.9% IV 50 ML 100 ML IVPB (05:48)
[2025-06-01 05:50] LABS: Troponin I 1.180 ng/mL (0.000-0.034)
--- NOTE | 2025-06-01 06:00 | PC.NURSE ---
ERP DR robbins on phone w/ pts daughter and pts and another daughter in room for consultation on what wishes are going forward. Pt is awake but only reponds by moaning and moving his legs. Noted in [facility] cath bloody urine at this time. Dr Robbins explaining POC to family and gave family options on POC for either transfer to higher level of care of comfort measures w/ admit here to this hospital.
[2025-06-01 06:02] LABS: Add Urine Microscopic? YES; Appearance Urine Clear (Clear); CRP > 9.0 mg/dL (<1.0); Glucose Urine UA Negative (Negative); Leukocyte Esterase Ur 1+ LEU/UL (Negative); Nitrate Urine Negative (Negative); Specific Grav Ur 1.015 (1.010-1.020)
[2025-06-01 06:09] LABS: Partial Thromboplastin Time 31.2 Sec (23.9-30.70)
--- NOTE | 2025-06-01 06:19 | PC.NURSE ---
After conferring w/ daughters, pt and family want pt to stay here and receive comfort measures only. They report not wanting any heroic measures or other aggressive treatments. POC will be to admit pt here for care and comrfort.
--- NOTE | 2025-06-01 06:54 | PC.NURSE ---
Report given to YOLANDA Boone. Pt will be admitted to Rm [id number].
[2025-06-01] MEDS: MORPHINE SULFATE INJ (*CRX) 10 MG/ML AMP 4 MG IV PUSH (06:58)
--- OUTSIDE RECORDS SUMMARY | 2025-06-01 08:26 | XMS_ITS | Clinical Summary ---
Author Organization [facility] [email or web address] Address [address] [place] [address] Care Team Providers Care Flight/Transport Nurse Name Role Phone Neftalytaco Ramesh BYERS Primary Care Provider [phone] Source Comments [facility] [email or web address],non-owned Affiliates and Associated Physician Practices is amultiple site organization consisting of ambulatory clinics and hospital sitesin [place], [place], [place] and [place]. This disclosure is being madepursuant to the Care Everywhere program and may not contain all information available regarding this patient. Last updated 18.[facility] [email or web address] Allergies Active Allergy Reactions Criticality Noted Date [...] 7:21 PM 04/02/2024 9:57 PM Care Teams Flight/Transport Nurse Relationship Specialty Start Date End Date Ramehs Forbes DO [address] [place] [id number] PCP - General Family Medicine 04/02/24
--- OUTSIDE RECORDS SUMMARY | 2025-06-01 08:26 | XMS_ITS | Clinical Summary ---
Author Organization [facility] Address [address] [place] [address] Care Team Providers Care Statistical Analyst Name Role Phone Ramesh Forbes Primary Care Provider Allergies No known active allergies Medications aspirin [...] drink = 0.6 oz pur e alcohol) [facility] Utilities Answer Date Recorded In the past 12 months has [employer] electric, gas, oil, or water company threatened [...] often do you attend chur ch or jewish services? More than 4 times per year 04/02/2024 Do you belong to any clubs o r organizations such as temple groups, unions, fraternal or athletic groups, or [...] and heating? Not hard at all 04/02/2024 [facility] [place] of Occupat ional Health - Occupational Stress [...] any time in the past 12 [facility], were you homeless or living in a fpc (including now)? No 04/02/2024 Domestic Abuse Assessment [...] topic Meningococcal Vaccine Aged Out No jn ysosi eligible based on patient's age to complete this topic Advance Directives * Full Resuscitation (Latest Code Status on File) Date Activated Date Inactivated Comments 04/02/2024 10:43 PM 04/24/2024 7:24 PM Question Answer Comments I have discussed this order with the patient or his/her surrogate and have received informed consent. Yes Care Teams Statistical Analyst Relationship Specialty Start Date End Date Ramesh Forbes [address] [place] [address] PCP - General 04/02/24
--- OUTSIDE RECORDS SUMMARY | 2025-06-01 08:26 | XMS_ITS | Clinical Summary ---
Author Organization [facility] Address [address] [place] [address] Phone Care Team Providers Care Fruit Peeler Name Role Phone Ramesh Forbes MD Primary Care Provider [phone] Social History Tobacco Use Types Packs/Day Years Used Date Smoking Tobacco: Never Assessed Sex and Gender Information Value Date Recorded Sex Assigned at Not on file Legal Sex Male 1:20 PM CDT Gender Identity Not on file Sexual Orientation Not on file Plan of Treatment Not on file Insurance MEDICARE Care Teams Fruit Peeler Relationship Specialty Start Date End Date Ramesh Forbes MD [address] [place] [id number] PCP - General Family Medicine 04/21/24
--- OUTSIDE RECORDS SUMMARY | 2025-06-01 08:26 | XMS_ITS | Clinical Summary ---
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
--- NOTE | 2025-06-01 08:34 | ADMGEN ---
This patient, Ralph Greer, was admitted to 2nd Floor Room 204-1. Patient/family oriented to hospital policies and general routines including ID bracelet, bed and alarms, visiting hours, pain management, procedures, bathroom and other care routines, personal items, smoking policy, room service/diet, and visiting hours. Information on how to activate the Rapid Response Team has been discussed. Patient/Family are encouraged to report perceived risks to care and to ask questions if they do not understand what they are told or what they should do. Brought to floor from ED, family x3 by his side.
[2025-06-01] MEDS: MORPHINE SULFATE (*CRX) 2 MG/ML INJ IV PUSH (11:06)
[2025-06-01] MEDS: SODIUM CHLORIDE 0.9% IV 1,000 ML 75 ML IV CONT (11:42)
[2025-06-01 12:35] LABS: Troponin I 1.490 ng/mL (0.000-0.034)
--- NOTE | 2025-06-01 13:15 | PM.IMHP ---
H&P: HPI History of Present Illness Date/Time: 06/01/25 13:15 Chief Complaint: Unresponsive Narrative: This is a 79 year old male that was brought in via ambulance with a steady decline for the past week . Patient was noted to be unresponsive for at least 24 hour prior to arrival to the hospital. Patient has a pmh per of hypertension he is seen by a [facility] Health Doctor and he does not go in to be seen. on arrival pt found to be uroseptic with end stage renal disease with a WBC 18.0 , RBC 3.04. Hgb11.8, hct 35.3, Plt adequate , sodium 142, potassium 4.5, chloride 21, BUN 37, Cr 3.80, GFR 16, Troponin 1.180, Lactic 4.9 Urine is bloody only, Ct scan showed no acute abnormality. Pt is unresponsive with loud snoring noted moments of grabbing at thing ungracefully. Pt is a DNR, DNI discussion with the family on what goals of care are. Offered to transfer with the understanding that this may not change his prognosis or maintain him. Family would like for use to treat infection and she how he fairs. Discussed hospice and the real possibility that he is not going to make it. states she understand and they would like to continue with the IV fluids and IV antibiotic and see if he improves. She would like for him to be kept comfortable he will receive pain medication in which I have switched to oral roxanol. [facility] Past Medical History Medical History (Updated 06/01/25 @ 09:06 by JIMMY POOL, YOLANDA) Benign essential hypertension No active medical problems Surgical History Surgical History No history of previous surgery Family History Family History (Updated 06/01/25 @ 09:05 by JIMMY POOL RN) Other Unknown family medical history Social History Social History Smoking status: Former smoker Second hand tobacco smoke exposure: No Alcohol intake: former Substance use: never Substance use type: does not use Lack of Transportation: No Lack of Food: Never True Current Housing: I Have Housing Concerned About Future Housing: No Difficulty Paying Gas/Electric Bills: No Difficulty Paying for Meds: No Currently Unemployed: No Education: Don't Know Difficulty w/ Childcare or Family Care: No Living arrangements: with family Occupation/Education: retired Gender identity (if verbalized by the patient): Male Sexual Orientation (if Verbalized by the Patient): Straight or Heterosexual Spiritual care concerns: No Meds Home Medications and Allergies Home Medications ?Medication ?Instructions ?Recorded ?Confirmed ?Type atorvastatin 40 mg tablet 40 mg PO HS 06/01/25 06/01/25 History carvedilol 6.25 mg tablet 6.25 mg PO Q12H 06/01/25 06/01/25 History clonidine 0.2 mg/24 hr weekly 1 patch transdermal WEEKLY 06/01/25 06/01/25 History transdermal patch clopidogrel 75 mg tablet 75 mg PO DAILY 06/01/25 06/01/25 History hydralazine 25 mg tablet 25 mg PO Q8H 06/01/25 06/01/25 History lisinopril 40 mg tablet 40 mg PO DAILY 06/01/25 06/01/25 History memantine 10 mg tablet 5 mg PO BID 06/01/25 06/01/25 History pyridoxine (vitamin B6) 50 mg 50 mg PO DAILY 06/01/25 06/01/25 History capsule Allergies Allergy/AdvReac Type Severity Reaction Status Date / Time tramadol Allergy Unknown Unknown Verified 06/01/25 05:00 Vital Signs Vital Signs - 24 hr 06/01/25 04:35 06/01/25 04:35 06/01/25 04:35 Temperature 98.4 F Pulse Rate 103 H 103 H 103 H Respiratory Rate 28 H 28 H Blood Pressure 116/73 120/69 Pulse Oximetry 94 93 Oxygen Delivery Nasal Cannula Oxygen Flow Rate 2 06/01/25 04:35 06/01/25 04:47 06/01/25 05:00 Temperature Pulse Rate 95 95 Respiratory Rate 36 H 31 H Blood Pressure Pulse Oximetry 93 91 93 Oxygen Delivery Nasal Cannula Oxygen Flow Rate 2 06/01/25 05:01 06/01/25 05:23 06/01/25 05:24 Temperature Pulse Rate 99 102 H Respiratory Rate 31 H 34 H Blood Pressure 125/83 127/76 Pulse Oximetry 94 92 91 Oxygen Delivery Oxygen Flow Rate 06/01/25 05:30 06/01/25 05:45 06/01/25 06:00 Temperature Pulse Rate 94 97 93 Respiratory Rate 30 H 30 H 33 H Blood Pressure 120/69 124/79 114/79 Pulse Oximetry 92 94 Oxygen Delivery Oxygen Flow Rate 06/01/25 06:15 06/01/25 06:16 06/01/25 06:30 Temperature Pulse Rate 98 98 92 Respiratory Rate 39 H 31 H 19 Blood Pressure 131/75 Pulse Oximetry 95 Oxygen Delivery Oxygen Flow Rate 06/01/25 06:32 06/01/25 06:45 06/01/25 06:46 Temperature Pulse Rate 93 89 91 Respiratory Rate 19 29 H 29 H Blood Pressure 129/74 117/73 Pulse Oximetry 93 94 94 Oxygen Delivery Oxygen Flow Rate 06/01/25 07:00 06/01/25 07:01 06/01/25 07:22 Temperature 98.4 F Pulse Rate 87 86 84 Respiratory Rate 30 H 34 H 22 H Blood Pressure 121/70 126/71 Pulse Oximetry 95 95 95 Oxygen Delivery Room Air Oxygen Flow Rate 06/01/25 08:00 Temperature 97.3 F L Pulse Rate 82 Respiratory Rate 30 H Blood Pressure 96/82 L Pulse Oximetry 95 Oxygen Delivery Nasal Cannula Oxygen Flow Rate 2 Exam Const: General: uncomfortable HENMT: Mouth: Yes moist mucous membranes Eyes: Pupils: Equal, round and reactive pupils present (Sluggish to respond to light ) Resp: Auscultation: diminished lung sounds Other: Rapid breathing with snoring noted Cardio: Rhythm: abnormal rhythm GI: GI Palp: Yes Soft to palpation and Yes Guarding due to palpation present (GI) Auscultation: normal bowel sounds Urinary Catheter: Urinary Catheter: patent and draining, urine dark and other (Bloody urine ) Skin: Other: Ashen in color Neuro: Other: Does not respond appropiately and does not speak and does not follow command Extrem: General: edema and pedal edema Psych: Other: obtundnate H&P: Results Labs Labs: Short CBC 06/01/25 Range/Units 04:54 WBC 18.0 H (4.8-10.8) K/mm3 Hgb 11.8 L (12.4-15.3) g/dL Hct 35.3 L (37.0-46.0) % Plt Count 186 (150-420) K/mm3 BMP 06/01/25 04:54 Sodium 142 Potassium 4.5 Chloride 108 H Carbon Dioxide 21 L BUN 37 H Creatinine 3.80 H Glucose 110 Calcium 8.8 Cardiac Enzymes 06/01/25 06/01/25 Range/Units 04:54 12:00 Troponin I 1.180 H* 1.490 H* D (0.000-0.034) ng/mL Liver Function 06/01/25 Range/Units 04:54 Total Bilirubin 1.2 (0.2-1.3) mg/dL AST 68 H (17-59) U/L ALT 40 (6-50) U/L Alkaline Phosphatase 99 (38-126) U/L Albumin 3.5 (3.5-5.1) g/dL Urine 06/01/25 Range/Units 05:34 Urine Color Light yellow (Yellow) Urine Appearance Clear (Clear) Urine pH 5.5 (5.0-8.0) Ur Specific [place] 1.015 (1.010-1.020) Urine Protein Negative (Negative) Urine Glucose (UA) Negative (Negative) Assessment and Plan Assessment and plan (1) Comfort measures only status: Code(s): Z51.5 - Encounter for palliative care Status: Acute Assessment and Plan: - meet with hospice - Explained to family pt is dying at this point -DNR/DNI - Roxanol - Ativan shortage did not order (2) Sepsis: Code(s): A41.9 - Sepsis, unspecified organism Status: Acute Assessment and Plan: - IV fluids -IV rocephen -Avoid Nephrotoxic medication - Blood culture pending - Turn Q 2 hours -WBC 18--> - Lactic 4.4-->4.0 (3) Renal failure: Code(s): N19 - Unspecified kidney failure Status: Acute Assessment and Plan: - Avoid Nephrotoxic medication # see number 2 (4) Non-ST elevation (NSTEMI) myocardial infarction: Code(s): I21.4 - Non-ST elevation (NSTEMI) myocardial infarction Status: Acute Assessment and Plan: - TNI 1.18 --->1.4 - Family aware there is no Cardiology - We will not be addressing cardiac NSTEMI as we are making pt comfortable and they have declined transfer Hospitalist MIPS Advance Care Plan I have confirmed that the patient's Advanced Care Plan is present, code status is documented, or surrogate decision maker is listed in patient medical record.: Yes Medication Reconciliation I have utilized all available resources to obtain, update and review the patients current medications (includes all prescriptions, OTC, herbals, cannabis, and nutritional supplements).: Yes The patient is not eligible for med reconciliation; the patient is in a emergent medical situation where delaying treatment would jeopardize the patients health.: No
[2025-06-01] MEDS: MORPHINE SULFATE ORAL CONC SOL (*CRX) 10 MG/0.5 ML SYRINGE 5 MG PO (20:53)
--- NOTE | 2025-06-01 22:37 | PC.NURSE ---
Patient opens eyes occasionally when turned but goes back to sleep immediately. Pt t/p Q2 hours. Madden cath patent and draining pure red urine. Bed alarm on. SR up. at bedside.
[2025-06-02] VITALS: BP 116/70; PULSE 102; RESP 36; TEMP 36.3; O2SAT 92
--- NOTE | 2025-06-02 00:30 | PC.NURSE ---
Pt resting quietly and was turned and repositioned to his left side. New bag of IV fluid infusing as ordered.
[2025-06-02] MEDS: SODIUM CHLORIDE 0.9% IV 1,000 ML 75 ML IV CONT (00:31)
--- NOTE | 2025-06-02 02:34 | PC.NURSE ---
Pt turned and repositioned to his right side.
--- NOTE | 2025-06-02 04:38 | PC.NURSE ---
Pt turned and repositioned to his side. Madden continues to drain bloody urine.
[2025-06-02 05:30] VITALS: O2SAT 94
[2025-06-02 05:34] LABS: Hematocrit 29.6 % (37.0-46.0); Hemoglobin 9.8 g/dL (12.4-15.3); Mean Corpuscular HGB Conc 33.1 g/dL (32-36); Mean Corpuscular Hemoglobin 30.7 pg (27.0-31.0); Mean Corpuscular Volume 92.8 fL (78.0-102.0); Platelet Count Result 113 K/mm3 (150-420); Red Blood Count 3.19 M/mm3 (4.70-6.10); White Blood Count 12.4 K/mm3 (4.8-10.8)
[2025-06-02 05:49] LABS: Anion Gap 12 mmol/L (4-12); Blood Urea Nitrogen 62 mg/dL (9-20); Calcium 8.4 mg/dL (8.4-10.2); Carbon Dioxide 21 mmol/L (22-30); Chloride 110 mmol/L (98-107); Estimated CRCL calculation 14 ml/min; Estimated Glomerular Filt Rate 10; Glucose 95 mg/dL (65-110); Osmolality Calculated 313 mOsm/kg (285-295); Potassium 5.2 mmol/L (3.4-5.0); Sodium 143 mmol/L (137-145)
[2025-06-02] MEDS: MORPHINE SULFATE ORAL CONC SOL (*CRX) 10 MG/0.5 ML SYRINGE 5 MG PO (05:55)
--- NOTE | 2025-06-02 06:00 | PC.NURSE ---
Pt given roxanol 5 mg po to relieve discomfort.
[2025-06-02] MEDS: cefTRIAXone 1 GM in SODIUM CHLORIDE 0.9% IV 50 ML 100 ML IVPB (07:40)
[2025-06-02 08:00] VITALS: BP 142/81; PULSE 93; RESP 36; TEMP 37; O2SAT 94
[2025-06-02] MEDS: LORazepam (*CRX) 2 MG/ML ORAL CONCENTRATE 1 ML SYRINGE 1 MG SUBLINGUAL ×3 (09:57→14:14)
[2025-06-02] MEDS: MORPHINE SULFATE (*CRX) 2 MG/ML INJ IV PUSH ×3 (10:44→14:14)
--- NOTE | 2025-06-02 11:14 | PC.NURSE ---
Bladder irrigation preformed at 1010, 100 cc sterile water irrigated into the bladder, 100 cc of bright red tinged urine drained from bladder.
--- NOTE | 2025-06-02 11:17 | PC.NURSE ---
today at 1100 bladder scan preformed. 126 cc urine is in bladder at this time. RESIDENT SURGEON aware
--- NOTE | 2025-06-02 12:20 | PC.NURSE ---
Lorazepam given for respirations of 34
--- NOTE | 2025-06-02 14:31 | PC.NURSE ---
Respirations 34, HR 74. Scheduled Morphine and PRN Lorazepam given. Patient turned and repositioned at this time.
--- NOTE | 2025-06-02 15:02 | PC.NURSE ---
Report received from David and this RN assumed care of pt at this time. Pt has just informed that pt qualifies for hospice in pt admission and that hospice nurse will arrive to admit pt and speak with family. Pt's spouse and two daughters currently at bedside. Pt currently laying on left side with wedge under right side. Pillow propped under right arm and between legs. Heels elevated and hanging off end of pillow. Madden catheter intact with blood present. Family denies any needs/concerns at this time. Hospital bed remains in low locked position and call light within families reach.
--- NOTE | 2025-06-02 15:37 | P.DS_ITS ---
DS: Admitting Diagnosis Discharge Date 06/02/2025 Admitting Diagnosis Sepsis with septic shock/acute renal failure/acute respiratory failure with hypoxia DS: Discharge Diagnosis Discharge Diagnosis (1) Sepsis without septic shock: Code(s): A41.9 - Sepsis, unspecified organism Status: Acute (2) Acute respiratory failure with hypoxia: Code(s): J96.01 - Acute respiratory failure with hypoxia Status: Acute (3) Comfort measures only status: Code(s): Z51.5 - Encounter for palliative care Status: Acute Assessment and Plan: Patient on admission unresponsive with acute respiratory failure with hypoxia and sepsis with septic shock previous provider had long discussion with family at which time they had requested DNR DNI with comfort measures only IV fluids and IV antibiotics. Followed up with patient's family the following day patient with worsening renal failure remained unresponsive patient's spouse and daughter at bedside both requested consult to hospice care. (4) Sepsis: Code(s): A41.9 - Sepsis, unspecified organism Status: Acute (5) Renal failure: Code(s): N19 - Unspecified kidney failure Status: Acute (6) Non-ST elevation (NSTEMI) myocardial infarction: Code(s): I21.4 - Non-ST elevation (NSTEMI) myocardial infarction Status: Acute DS: Summary Hospital Course Reason for hospitalization: Sepsis with septic shock/acute respiratory failure with hypoxia/acute renal failure Hospital Course: Admission: Medical Chart: Patient was a 79 year old male that was brought in via ambulance with a steady decline for the past week . Patient was noted to be unresponsive for at least 24 hour prior to arrival to the hospital. Patient has a pmh per of hypertension he is seen by a [facility] Health Doctor and he does not go in to be seen. on arrival pt found to have sepsis with septic shock secondary to UTI with acute renal failure patient with no history of CKD. In the ED: WBC 18.0 , RBC 3.04. Hgb11.8, hct 35.3, Plt adequate , sodium 142, potassium 4.5, chloride 21, BUN 37, Cr 3.80, GFR 16, Troponin 1.180, Lactic 4.9 Urine is bloody only, Ct scan showed no acute abnormality. Pt is unresponsive with loud snoring noted moments of grabbing at thing ungracefully. Pt is a DNR, DNI discussion with the family on what goals of care by previous provider. Offered to transfer with the understanding that this may not change his prognosis or maintain him. Family would like for use to treat infection and she how he fairs. Discussed hospice and the real possibility that he is not going to make it. states she understand and they would like to continue with the IV fluids and IV antibiotic and see if he improves. She would like for him to be kept comfortable he will receive pain medication at which time he was placed comfort measures only status. Patient was seen assessed following day still unresponsive with acute respiratory failure with hypoxia and sepsis with septic shock previous provider had long discussion with family at which time they had requested DNR DNI with comfort measures only IV fluids and IV antibiotics. Followed up with patient's family regarding patient's worsening renal failure and poor prognosis which time they have requested a consult to hospice care. Patient was then discharged to inpatient hospice. Status at Discharge Functional status at discharge: bed bound Overall status at discharge: other Time Spent with Patient Time attestation: Total time spent providing and/or coordinating discharge services: Time spent: Greater than 30 minutes Exam Const: General: uncomfortable Other: Unresponsive on the response to painful stimuli HENMT: Mouth: Yes dry mucous membranes Eyes: Pupils: Equal, round and reactive pupils present (Sluggish to respond to light ) Resp: Effort & Inspection: labored, nasal flaring, respiratory distress, retractions and tachypneic Auscultation: diminished lung sounds Cardio: Rhythm: abnormal rhythm GI: Auscultation: normal bowel sounds Urinary Catheter: Urinary Catheter: patent and draining, urine dark, urine red and other (Bloody urine ) Skin: Other: Ashen in color Neuro: Other: Does not respond appropiately and does not speak and does not follow command Extrem: General: edema and pedal edema Psych: Other: obtundnate DS: Data Data Completed and Pending Labs on day of discharge: Labs from last 24 hours 06/02/25 05:18 WBC 12.4 H RBC 3.19 L Hgb 9.8 L Hct 29.6 L MCV 92.8 MCH 30.7 MCHC 33.1 RDW 13.5 Plt Count 113 L MPV 10.2 Sodium 143 Potassium 5.2 H Chloride 110 H Carbon Dioxide 21 L Anion Gap 12 BUN 62 H D Creatinine 5.49 H Estim Creat Clear Calc 14 Estimated GFR 10 L Glucose 95 Calculated Osmolality 313 H Calcium 8.4 Preliminary micro results at discharge 06/01/25 05:34 Blood Culture - Preliminary Blood Gram negative bacilli isolated 06/01/25 05:34 Blood Culture - Preliminary Blood Gram negative bacilli isolated Discharge Plan Discharge Attending physician on discharge: William Vale Consulting providers: Alyce Anderson Discharging Clinician: Alyce Anderson Anticipated Discharge Date/Time: 06/02/25 15:47 Patient Disposition: Hospice - Medical Facility Patient Language: Portuguese Stand Alone Forms: General Discharge Information Discharge Medications: New lorazepam [Lorazepam Intensol] 2 mg/mL Concentrate 1 mg sublingual Q2H PRN (Reason: Anxiety) Qty: 1 0RF morphine 2 mg/mL Syringe 2 mg IV PUSH Q2H Qty: 1 0RF atropine 1 % Drops 1 drp sublingual Q4H PRN (Reason: Secretions) Qty: 1 0RF Discontinued atorvastatin 40 mg tablet 40 mg PO HS carvedilol 6.25 mg tablet 6.25 mg PO Q12H clonidine 0.2 mg/24 hr patch weekly 1 patch transdermal WEEKLY hydralazine 25 mg tablet 25 mg PO Q8H lisinopril 40 mg tablet 40 mg PO DAILY memantine 10 mg tablet 5 mg PO BID clopidogrel 75 mg tablet 75 mg PO DAILY pyridoxine (vitamin B6) 50 mg capsule 50 mg PO DAILY Date of admission: 06/01/25 06:45 Primary Care Provider: UNKNOWN,DOCTOR Admitting Provider: William Vale Attending physician on admission: William Vale Condition: Terminal Quality -Patient's previous records reviewed on admission -ER notes reviewed in detail on admission -discussed all findings and current treatment plan with patient/Family/POA -Patient's disposition for safe discharge discussed with case loader operator Dictation performed by Telepath direct speech recognition software, therefore microsoft net developer variants and typographical errors may occur. Hospitalist MIPS Heart Failure (Exclusion) Patient has history of Heart Transplant or Left Ventricular Assistive Device?: No IF YES, STOP HERE Heart Failure (Qualifier) Patient has current or prior documentation of LVEF less than or equal to 40%, or mod/servere depressed LVSF?: No IF NO, STOP HERE
--- OUTSIDE RECORDS SUMMARY | 2025-06-09 19:00 | XMS_ITS | Clinical Summary ---
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 Role Phone DIXIE SIERRA, CARMELITA Unavailable Unavailable SETH BRYAN, CICI Unavailable Unavailjean carlos MEYER RN, CLAIR Unavailable Unavailable Payers Payer Name Policy Type Policy Number Effective Date Expira tion Date MEDICARE - [facility] [id number] Problems Condition Name Condition Details Condition Category Status Onset Date Resolution Date Last Treatment Date Treating Clinician Comments ESSENTIAL (PRIMARY) HYPERTENSION Active 09-09 00:00: 00 UNSPECIFIED DEMENTIA, MODERATE, WITH AGITATION Active 09-09 00:00: 00 UNSPECIFIED DEMENTIA, MODERATE, WITH MOOD DISTURBANCE Active 09-09 00:00: 00 UNSPECIFIED ATRIAL FIBRILLATION Active 09-09 00:00: 00 APHASIA FOLLOWING CEREBRAL INFARCTION Active 09-09 00:00: 00 HYPERLIPIDEM IA, UNSPECIFIED Active 09-09 00:00: 00 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 09-09 00:00: 00 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 Ordering Clinician Indication Dosage Frequency Signature (SIG) Comments Components lisinopril 40 mg tablet 04-02 00:00: 00 04-25 00:00 :00 No [id number] Per instruc tions Per instructio ns (route: oral) Med Classific ation: Cardiovas cular Therapy Agents aspirin 81 mg chewable tablet 04-25 00:00: 00 11-10 23:59 :00 No [id number] 1 tablet DAILY 1 tablet DAILY (route: oral) Med Classific ation: Hematolog ical Agents atorvastati n 40 mg tablet 04-25 00:00: 00 11-10 23:59 :00 No [id number] 1 tablet BEDTIME 1 tablet BEDTIME (route: oral) Med Classific ation: Cardiovas cular Therapy Agents carvedilol 6.25 mg tablet 04-25 00:00: 00 11-10 23:59 :00 No [id number] 1 tablet 2 TIMES DAILY 1 tablet 2 TIMES DAILY (route: oral) Med Classific ation: Cardiovas cular Therapy Agents clonidine 0.2 mg/24 hr weekly transdermal patch 04-25 00:00: 00 11-10 23:59 :00 No [id number] 1 patch, transde rmal weekly WEEKLY 1 patch, transderma l weekly WEEKLY (route: transderma l) Med Classific ation: Cardiovas cular Therapy Agents divalproex 125 mg capsule,del ayed release sprinkle 04-25 00:00: 00 11-10 23:59 :00 No [id number] 2 capsule 3 TIMES DAILY 2 capsule 3 TIMES DAILY (route: oral) Med Classific ation: Central Nervous System Agents hydralazine 25 mg tablet 04-25 00:00: 00 05-12 23:59 :00 No [id number] 3 tablet EVERY 8 HOURS 3 tablet EVERY 8 HOURS (route: oral) Med Classific ation: Cardiovas cular Therapy Agents lisinopril 40 mg tablet 04-25 00:00: 00 11-10 23:59 :00 No [id number] 1 tablet DAILY 1 tablet DAILY (route: oral) Med Classific ation: Cardiovas cular Therapy Agents memantine 10 mg tablet 04-25 00:00: 11-10 23:59 :00 No [id number] 0.5-1 tablet 2 TIMES DAILY 0.5-1 tablet 2 TIMES DAILY (route: oral) Med Classific ation: Cognitive Disorder Therapy olanzapine 5 mg disintegrat ing tablet 04-25 00:00: 00 11-10 23:59 :00 No [id number] 1 tablet 3 TIMES DAILY 1 tablet 3 TIMES DAILY (route: oral) Med Classific ation: Central Nervous System Agents Plavix 75 mg tablet 04-25 00:00: 00 11-10 23:59 :00 No [id number] 1 tablet DAILY 1 tablet DAILY (route: oral) Med Classific ation: Hematolog ical Agents pyridoxine (vitamin B6) 50 mg tablet 04-25 00:00: 00 11-10 23:59 :00 No [id number] 1 tablet DAILY 1 tablet DAILY (route: oral) Med Classific ation: Electroly te Balance-N utritiona l Products hydralazine 25 mg tablet 05-12 00:00: 00 11-10 23:59 :00 No [id number] 1 tablet EVERY 8 HOURS 1 tablet EVERY 8 HOURS (route: oral) Med Classific ation: Cardiovas cular Therapy Agents aspirin 81 mg tablet,josef yed release 04-12 00:00: 00 Yes [id number] 1 tablet DAILY 1 tablet DAILY (route: oral) Med Classific ation: Hematolog ical Agents atorvastati n 40 mg tablet 04-12 00:00: 00 Yes [id number] 1 tablet DAILY 1 tablet DAILY (route: oral) Med Classific ation: Cardiovas cular Therapy Agents carvedilol 6.25 mg tablet 04-12 00:00: 00 Yes [id number] 1 tablet 2 TIMES DAILY 1 tablet 2 TIMES DAILY (route: oral) Med Classific ation: Cardiovas cular Therapy Agents clonidine 0.2 mg/24 hr weekly transdermal patch 04-12 00:00: 00 Yes [id number] 1 patch, transde rmal weekly WEEKLY 1 patch, transderma l weekly WEEKLY (route: transderma l) Med Classific ation: Cardiovas cular Therapy Agents clopidogrel 75 mg tablet 04-12 00:00: 00 Yes [id number] 1 tablet DAILY 1 tablet DAILY (route: oral) Med Classific ation: Hematolog ical Agents hydralazine 25 mg tablet 04-12 00:00: 00 Yes [id number] 1 tablet EVERY 8 HOURS 1 tablet EVERY 8 HOURS (route: oral) Med Classific ation: Cardiovas cular Therapy Agents lisinopril 40 mg tablet 04-12 00:00: 00 Yes [id number] 1 tablet DAILY 1 tablet DAILY (route: oral) Med Classific ation: Cardiovas cular Therapy Agents memantine 10 mg tablet 04-12 00:00: 00 Yes [id number] 1 tablet BEDTIME 1 tablet BEDTIME (route: oral) Med Classific ation: Cognitive Disorder Therapy memantine 5 mg tablet 04-12 00:00: 00 Yes [id number] 1 tablet DAILY 1 tablet DAILY (route: oral) Med Classific ation: Cognitive Disorder Therapy Senna with Docusate Sodium 8.6 mg-50 mg tablet 04-12 00:00: 00 Yes [id number] 2 tablet EVERY PM 2 tablet EVERY PM (route: oral) Med Classific ation: Gastroint estinal Therapy Agents Stool Softener 100 mg capsule 04-12 00:00: 00 Yes [id number] 1 capsule 2 TIMES DAILY 1 capsule 2 TIMES DAILY (route: oral) Med Classific ation: Gastroint estinal Therapy Agents Vitamin B-6 100 mg tablet 04-12 00:00: 00 Yes [id number] 1 tablet DAILY 1 tablet DAILY (route: oral) Med Classific ation: Electroly te Balance-N utritiona l Products Immunizations Ordered Immunization Name Filled Immunization Name Date Status Comments Refusal Reason REFUSED COVID, COVID-19 2025-04-12 00:00:00 REFUSED PNEUMONIA, PPV 2025-04-12 00:00:00 Vital Signs Vital Name Observation Time Observation Value Commen ts Temperature 2025-05-31 15:17:00.000 98 [degF] Temperature 2025-05-26 14:30:00.000 98.8 [degF] Temperature 2025-05-26 13:30:00.000 98.1 [degF] Temperature 2025-05-25 10:16:00.000 98.4 [degF] Temperature 2025-05-19 12:39:00.000 98.3 [degF] Temperature 2025-05-18 19:10:00.000 98 [degF] Temperature 2025-05-18 12:02:00.000 97.5 [degF] Temperature 2025-05-14 14:52:00.000 98.1 [degF] Temperature 2025-05-12 16:45:00.000 98.7 [degF] Temperature 2025-05-12 14:53:00.000 98 [degF] Temperature 2025-05-07 10:37:00.000 98.2 [degF] Temperature 2025-05-06 11:11:00.000 98.6 [degF] Temperature 2025-04-30 15:53:00.000 97.8 [degF] Temperature 2025-04-30 09:59:00.000 97.5 [degF] Temperature 2025-04-27 11:26:00.000 97.4 [degF] Temperature 2025-04-27 09:22:00.000 97 [degF] Temperature 2025-04-23 14:13:00.000 98.9 [degF] Temperature 2025-04-20 09:43:00.000 99.1 [degF] Temperature 2025-04-12 16:03:00.000 98.7 [degF] Height 2025-04-12 16:03:00.000 73 [in_us] Pulse 2025-05-31 15:17:00.000 128 /min Pulse 2025-05-26 14:30:00.000 60 /min Pulse 2025-05-26 13:30:00.000 68 /min Pulse 2025-05-25 10:16:00.000 64 /min Pulse 2025-05-19 12:39:00.000 67 /min Pulse 2025-05-18 19:10:00.000 76 /min Pulse 2025-05-18 12:02:00.000 63 /min Pulse 2025-05-14 14:52:00.000 66 /min Pulse 2025-05-12 16:45:00.000 66 /min Pulse 2025-05-12 14:53:00.000 72 /min Pulse 2025-05-07 10:37:00.000 69 /min Pulse 2025-05-06 11:11:00.000 68 /min Pulse 2025-04-30 15:53:00.000 60 /min Pulse 2025-04-30 09:59:00.000 64 /min Pulse 2025-04-27 11:26:00.000 57 /min Pulse 2025-04-27 09:22:00.000 57 /min Pulse 2025-04-23 14:13:00.000 64 /min Pulse 2025-04-20 09:43:00.000 52 /min Pulse 2025-04-12 16:03:00.000 59 /min O2 Saturation (%) 2025-05-26 14:30:00.000 95 % O2 Saturation (%) 2025-05-18 12:07:00.000 100 % O2 Saturation (%) 2025-05-14 14:54:00.000 96 % O2 Saturation (%) 2025-05-07 10:42:00.000 94 % O2 Saturation (%) 2025-04-30 10:00:00.000 98 % O2 Saturation (%) 2025-04-27 11:26:00.000 93 % O2 Saturation (%) 2025-04-27 09:22:00.000 93 % O2 Saturation (%) 2025-04-20 09:43:00.000 96 % O2 Saturation (%) 2025-04-12 16:03:00.000 95 % Respirations 2025-05-31 15:17:00.000 20 /min Respirations 2025-05-26 14:30:00.000 18 /min Respirations 2025-05-26 13:30:00.000 18 /min Respirations 2025-05-25 10:16:00.000 18 /min Respirations 2025-05-19 12:39:00.000 18 /min Respirations 2025-05-18 19:10:00.000 18 /min Respirations 2025-05-18 12:02:00.000 18 /min Respirations 2025-05-14 14:52:00.000 18 /min Respirations 2025-05-12 16:45:00.000 18 /min Respirations 2025-05-12 14:53:00.000 18 /min Respirations 2025-05-07 10:37:00.000 18 /min Respirations 2025-05-06 11:11:00.000 18 /min Respirations 2025-04-30 15:53:00.000 18 /min Respirations 2025-04-30 09:59:00.000 18 /min Respirations 2025-04-27 11:26:00.000 18 /min Respirations 2025-04-27 09:22:00.000 18 /min Respirations 2025-04-23 14:13:00.000 18 /min Respirations 2025-04-20 09:43:00.000 18 /min Respirations 2025-04-12 16:03:00.000 18 /min Systolic Blood Pressure 2025-05-31 15:17:00.000 178 mm [Hg] Systolic Blood Pressure 2025-05-26 14:30:00.000 168 mm [Hg] Systolic Blood Pressure 2025-05-26 13:30:00.000 132 mm [Hg] Systolic Blood Pressure 2025-05-25 10:16:00.000 183 mm [Hg] Systolic Blood Pressure 2025-05-19 12:39:00.000 166 mm [Hg] Systolic Blood Pressure 2025-05-18 19:10:00.000 172 mm [Hg] Systolic Blood Pressure 2025-05-18 12:02:00.000 168 mm [Hg] Systolic Blood Pressure 2025-05-14 14:52:00.000 161 mm [Hg] Systolic Blood Pressure 2025-05-12 16:45:00.000 170 mm [Hg] Systolic Blood Pressure 2025-05-12 14:53:00.000 172 mm [Hg] Systolic Blood Pressure 2025-05-07 10:44:00.000 180 mm [Hg] Systolic Blood Pressure 2025-05-06 11:11:00.000 178 mm [Hg] Systolic Blood Pressure 2025-04-30 15:53:00.000 156 mm [Hg] Systolic Blood Pressure 2025-04-27 11:26:00.000 142 mm [Hg] Systolic Blood Pressure 2025-04-27 09:22:00.000 142 mm [Hg] Systolic Blood Pressure 2025-04-23 14:13:00.000 172 mm [Hg] Systolic Blood Pressure 2025-04-20 09:43:00.000 168 mm [Hg] Systolic Blood Pressure 2025-04-12 16:03:00.000 180 mm [Hg] Diastolic Blood Pressure 2025-05-31 15:17:00.000 84 mm [Hg] Diastolic Blood Pressure 2025-05-26 14:30:00.000 82 mm [Hg] Diastolic Blood Pressure 2025-05-26 13:30:00.000 78 mm [Hg] Diastolic Blood Pressure 2025-05-25 10:16:00.000 86 mm [Hg] Diastolic Blood Pressure 2025-05-19 12:39:00.000 78 mm [Hg] Diastolic Blood Pressure 2025-05-18 19:10:00.000 72 mm [Hg] Diastolic Blood Pressure 2025-05-18 12:02:00.000 98 mm [Hg] Diastolic Blood Pressure 2025-05-14 14:52:00.000 95 mm [Hg] Diastolic Blood Pressure 2025-05-12 16:45:00.000 88 mm [Hg] Diastolic Blood Pressure 2025-05-12 14:53:00.000 80 mm [Hg] Diastolic Blood Pressure 2025-05-07 10:44:00.000 90 mm [Hg] Diastolic Blood Pressure 2025-05-06 11:11:00.000 86 mm [Hg] Diastolic Blood Pressure 2025-04-30 15:53:00.000 78 mm [Hg] Diastolic Blood Pressure 2025-04-27 11:26:00.000 90 mm [Hg] Diastolic Blood Pressure 2025-04-27 09:22:00.000 90 mm [Hg] Diastolic Blood Pressure 2025-04-23 14:13:00.000 84 mm [Hg] Diastolic Blood Pressure 2025-04-20 09:43:00.000 90 mm [Hg] Diastolic Blood Pressure 2025-04-12 16:03:00.000 98 mm [Hg] Plan of Treatment Planned Activity Planned Date Details Comments Future Scheduled Test SKILLED NU RSE TO EVALUATE PATIENT, IDENTIFY PRIMARY AND CO-MORBID CONDITIONS CODED PER CODING GUIDELINES, AND DEVELOP PATIENT SPECIFIC PLAN OF CARE THAT INCLUDES PATIENT GOAL FOR HOME HEALTH. [code = SKILLED NURSE TO EVALUATE PATIENT, IDENTIFY PRIMARY AND CO-MORBID CONDITIONS CODED PER CODING GUIDELINES, AND DEVELOP PATIENT SPECIFIC PLAN OF CARE THAT INCLUDES PATIENT GOAL FOR HOME HEALTH.] Future Scheduled Test [facility] AGENCY MAY ACCEPT ORDERS FROM THE FOLLOWING PHYSICIANS: LUPE KRAFT NP, EMPLOYMENT MANAGER/TREATING PROVIDERS [code = HOME HEALTH AGENCY MAY ACCEPT ORDERS FROM THE FOLLOWING PHYSICIANS: LUPE KRAFT NP, EMPLOYMENT MANAGER/TREATING PROVIDERS] Future Scheduled Test OCCUPATION AL THERAPIST TO EVALUATE PATIENT FOR ADL DEFICITS ... [code = OCCUPATIONAL THERAPIST TO EVALUATE PATIENT FOR ADL DEFICITS ...] Future Scheduled Test SPEECH THE RAPIST TO EVALUATE PATIENT FOR SPEECH DIFFICULTIES. [code = SPEECH THERAPIST TO EVALUATE PATIENT FOR SPEECH DIFFICULTIES.] Future Scheduled Test PHYSICAL T HERAPIST TO EVALUATE PATIENT FOR FUNCTIONAL DECLINE. [code = PHYSICAL THERAPIST TO EVALUATE PATIENT FOR FUNCTIONAL DECLINE.] Future Scheduled Test SKILLED NU RSE TO INSTRUCT PATIENT/CAREGIVER ON SIGNS AND SYMPTOMS, RISK FACTORS, COMPLICATIONS, AND MANAGEMENT OF ATRIAL FIBRILLATION. [code = SKILLED NURSE TO INSTRUCT PATIENT/CAREGIVER ON SIGNS AND SYMPTOMS, RISK FACTORS, COMPLICATIONS, AND MANAGEMENT OF ATRIAL FIBRILLATION.] Future Scheduled Test SKILLED NU RSE TO PROVIDE TEACHING ON SIGNS AND SYMPTOMS AND MANAGEMENT OF HYPERTENSION. [code = SKILLED NURSE TO PROVIDE TEACHING ON SIGNS AND SYMPTOMS AND MANAGEMENT OF HYPERTENSION.] Future Scheduled Test SKILLED NU RSE FOR OBSERVATION AND ASSESSMENT TO IDENTIFY CHANGES ASSOCIATED WITH DEMENTIA AND TEACHING RELATED TO SAFETY MEASURES TO PREVENT INJURY, ELOPEMENT RISKS, BEHAVIOR CHANGES, ACTIVITIES, AND ENVIRONMENTAL CHANGES ALL SECONDARY TO IMPAIRED COGNITIVE STATUS. [code = SKILLED NURSE FOR OBSERVATION AND ASSESSMENT TO IDENTIFY CHANGES ASSOCIATED WITH DEMENTIA AND TEACHING RELATED TO SAFETY MEASURES TO PREVENT INJURY, ELOPEMENT RISKS, BEHAVIOR CHANGES, ACTIVITIES, AND ENVIRONMENTAL CHANGES ALL SECONDARY TO IMPAIRED COGNITIVE STATUS.] Future Scheduled Test SKILLED NU RSE TO INSTRUCT PATIENT/CAREGIVER ON WARNING SIGNS OF CVA, RISK FACTORS, AND METHODS TO MANAGE SENIOR CARE EFFECTS OF CVA. [code = SKILLED NURSE TO INSTRUCT PATIENT/CAREGIVER ON WARNING SIGNS OF CVA, RISK FACTORS, AND METHODS TO MANAGE SENIOR CARE EFFECTS OF CVA.] Future Scheduled Test PATIENT ISBELL S A RISK OF HOSPITALIZATION AND ED USE. SKILLED NURSE TO ESTABLISH SUPPORT MEASURES TO MINIMIZE RISK OF HOSPITALIZATION AND ED USE, AND INSTRUCT PATIENT/CAREGIVER ON METHODS TO REDUCE AVOIDABLE HOSPITALIZATION AND ED USE. [code = PATIENT HAS A RISK OF HOSPITALIZATION AND ED USE. SKILLED NURSE TO ESTABLISH SUPPORT MEASURES TO MINIMIZE RISK OF HOSPITALIZATION AND ED USE, AND INSTRUCT PATIENT/CAREGIVER ON METHODS TO REDUCE AVOIDABLE HOSPITALIZATION AND ED USE.] Future Scheduled Test SKILLED NU RSE TO PROVIDE INSTRUCTION TO PATIENT/CAREGIVER RELATED TO DISCHARGE PLANNING. [code = SKILLED NURSE TO PROVIDE INSTRUCTION TO PATIENT/CAREGIVER RELATED TO DISCHARGE PLANNING.] Future Scheduled Test SKILLED NU RSE TO PERFORM ENVIRONMENTAL SAFETY RISK ASSESSMENT AND FALL RISK ASSESSMENT AND PROVIDE INSTRUCTION TO IMPLEMENT ENVIRONMENTAL SAFETY AND FALL PREVENTION STRATEGIES THROUGHOUT THE CERTIFICATION PERIOD. SKILLED NURSE WILL MAINTAIN SITUATIONAL AWARENESS AND WILL NOTIFY CLINICAL NARCOTICS INVESTIGATOR AND PHYSICIAN/PROVIDER WITH ANY CHANGE IN CONDITION. [code = SKILLED NURSE TO PERFORM ENVIRONMENTAL SAFETY RISK ASSESSMENT AND FALL RISK ASSESSMENT AND PROVIDE INSTRUCTION TO IMPLEMENT ENVIRONMENTAL SAFETY AND FALL PREVENTION STRATEGIES THROUGHOUT THE CERTIFICATION PERIOD. SKILLED NURSE WILL MAINTAIN SITUATIONAL AWARENESS AND WILL NOTIFY CLINICAL NARCOTICS INVESTIGATOR AND PHYSICIAN/PROVIDER WITH ANY CHANGE IN CONDITION.] Future Scheduled Test SKILLED NU RSE FOR OBSERVATION AND ASSESSMENT OF PATIENT S PAIN LEVEL AND EFFECTIVENESS OF PAIN MANAGEMENT REGIMEN. SKILLED NURSE TO INSTRUCT PATIENT/CAREGIVER REGARDING PHARMACOLOGIC AND NON-PHARMACOLOGIC PAIN CONTROL MEASURES. SKILLED NURSE TO REPORT TO PHYSICIAN IF PAIN LEVEL IS OUTSIDE OF ESTABLISHED PARAMETERS. [code = SKILLED NURSE FOR OBSERVATION AND ASSESSMENT OF PATIENT S PAIN LEVEL AND EFFECTIVENESS OF PAIN MANAGEMENT REGIMEN. SKILLED NURSE TO INSTRUCT PATIENT/CAREGIVER REGARDING PHARMACOLOGIC AND NON-PHARMACOLOGIC PAIN CONTROL MEASURES. SKILLED NURSE TO REPORT TO PHYSICIAN IF PAIN LEVEL IS OUTSIDE OF ESTABLISHED PARAMETERS.] Future Scheduled Test SKILLED NU RSE TO ASSESS PATIENT'S SKIN INTEGRITY AND INSTRUCT PATIENT/CAREGIVER ON MEASURES TO PREVENT PRESSURE ULCERS. [code = SKILLED NURSE TO ASSESS PATIENT'S SKIN INTEGRITY AND INSTRUCT PATIENT/CAREGIVER ON MEASURES TO PREVENT PRESSURE ULCERS.] Future Scheduled Test SKILLED NU RSE TO REVIEW PATIENT MEDICATIONS (PRESCRIPTION/OTC). INSTRUCT PATIENT/CAREGIVER ON ALL MEDICATIONS INCLUDING PURPOSE, WHEN TO TAKE, IMPORTANCE OF MEDICATION ADHERENCE, MONITORING OF EFFECTIVENESS, ADVERSE DRUG REACTIONS, POSSIBLE SIDE EFFECTS, AND WHEN TO NOTIFY AGENCY OR PHYSICIAN/PROVIDER OF ANY CONCERNS. [code = SKILLED NURSE TO REVIEW PATIENT MEDICATIONS (PRESCRIPTION/OTC). INSTRUCT PATIENT/CAREGIVER ON ALL MEDICATIONS INCLUDING PURPOSE, WHEN TO TAKE, IMPORTANCE OF MEDICATION ADHERENCE, MONITORING OF EFFECTIVENESS, ADVERSE DRUG REACTIONS, POSSIBLE SIDE EFFECTS, AND WHEN TO NOTIFY AGENCY OR PHYSICIAN/PROVIDER OF ANY CONCERNS.] Goal Patient Goal - GET STRONGER Goal Provider Goal - A PLAN OF CARE WILL BE ESTABLISHED THAT MEETS PATIENT'S [facility] NEEDS AND INCLUDES PATIENT GOAL FOR HOME HEALTH. Goal Provider Goal - ADDITIONAL ORDERS WILL BE RECEIVED FROM ALTERNATE PHYSICIAN IN A TIMELY MANNER THROUGHOUT THE CERTIFICATION PERIOD. Goal Provider Goal - OCCUPATIONAL THERAPY EVALUATION TO BE COMPLETED WITH RECOMMENDATIONS AND WRITTEN PLAN OF TREATMENT ESTABLISHED FOR THE PHYSICIAN S SIGNATURE. Goal Provider Goal - SPEECH THERAPIST EVALUATION TO BE COMPLETED WITH RECOMMENDATIONS AND/OR WRITTEN PLAN OF TREATMENT ESTABLISHED FOR THE PHYSICIAN S SIGNATURE. Goal Provider Goal - A PHYSICAL THERAPY EVALUATION TO BE COMPLETED WITH RECOMMENDATIONS AND/OR WRITTEN PLAN OF TREATMENT ESTABLISHED FOR PHYSICIAN S SIGNATURE. Goal Provider Goal - PATIENT/CAREGIVER WILL VERBALIZE UNDERSTANDING OF SIGNS AND SYMPTOMS, COMPLICATIONS, AND MANAGEMENT OF ATRIAL FIBRILLATION THROUGHOUT THE CERTIFICATION PERIOD. Goal Provider Goal - PATIENT/CAREGIVER WILL VERBALIZE SIGNS AND SYMPTOMS OF HYPERTENSION AND WILL BE ABLE TO DEMONSTRATE ABILITY TO MANAGE EXACERBATION BY END OF THE EPISODE. Goal Provider Goal - PATIENT/CAREGIVER WILL VERBALIZE /DEMONSTRATE APPROPRIATE ENVIRONMENTAL/SAFETY MODIFICATIONS IN RESPONSE TO BEHAVIOR/COGNITIVE CHANGES ASSOCIATED WITH DEMENTIA DIAGNOSIS THROUGHOUT THE CERTIFICATION PERIOD. Goal Provider Goal - PATIENT/CAREGIVER WILL DEMONSTRATE COMPLIANCE WITH TREATMENT REGIME AND VERBALIZE SIGNS AND SYMPTOMS TO REPORT WELL POSSIBLE COMPLICATIONS OF CVA BY END OF EPISODE. Goal Provider Goal - PATIENT WILL HAVE SUPPORT MEASURES ESTABLISHED TO PREVENT HOSPITALIZATION AND ED USE AND PATIENT/CAREGIVER WILL VERBALIZE/DEMONSTRATE METHODS TO REDUCE AVOIDABLE HOSPITALIZATION AND ED USE BY END OF EPISODE. Goal Provider Goal - PATIENT/CAREGIVER WILL VERBALIZE UNDERSTANDING OF DISCHARGE PLANNING INSTRUCTIONS BY DATE OF DISCHARGE. Goal Provider Goal - PATIENT/CAREGIVER WILL VERBALIZE/DEMONSTRATE EFFECTIVE ENVIRONMENTAL SAFETY AND FALL PREVENTION STRATEGIES, WILL REMAIN SAFE IN THE COMMUNITY, AND WILL BE FREE OF DANGER TO SELF AND OTHERS THROUGHOUT THE CERTIFICATION PERIOD. Goal Provider Goal - PATIENT/CAREGIVER WILL DEMONSTRATE UNDERSTANDING OF PHARMACOLOGIC AND NONPHARMACOLOGIC PAIN CONTROL MEASURES AND PATIENT WILL HAVE IMPROVEMENT IN PAIN INTERFERING WITH ACTIVITY EVIDENCED BY PAIN AT A LEVEL THAT IS ACCEPTABLE TO THE PATIENT AND PAIN LEVEL WITHIN ESTABLISHED PARAMETERS BY END OF CERTIFICATION PERIOD. Goal Provider Goal - PATIENT/CAREGIVER WILL VERBALIZE UNDERSTANDING OF PRESSURE ULCER PREVENTION BY END OF THE EPISODE. Goal Provider Goal - PATIENT/CAREGIVER WILL VERBALIZE UNDERSTANDING OF EDUCATION PROVIDED ON MEDICATIONS BY THE END OF THE CERTIFICATION PERIOD. Encounters Start Date/Time End Date/Time Encounter Type Admission Type Attending [facility] Care Facility Care Department Encounter ID Discharge Date Discharge Status Discharge Condition Discharge Reason Percent Goals Met 2025-04-12 00:00:00 2025-06-10 00:00:00 Outpatient CICI RAMIREZ [facility] [id number]
--- OUTSIDE RECORDS SUMMARY | 2025-06-09 19:00 | XMS_ITS | Clinical Summary ---
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 09-09 00:00: 00 FEEDER ASSOCIATE (CURRENT) USE OF ANTITHROMBOT ICS/ANTIPLAT ELETS Active [...] 04-02 00:00: 00 04-25 00:00 :00 No [id number] Per instruc tions Per instructio ns (route: oral) Med Classific ation: Cardiovas cular Therapy Agents aspirin 81 mg chewable tablet 04-25 00:00: 00 11-10 23:59 :00 No [id number] 1 tablet DAILY 1 tablet DAILY (route: oral) Med Classific ation: Hematolog ical Agents atorvastati n 40 mg tablet 04-25 00:00: 00 11-10 23:59 :00 No [id number] 1 tablet BEDTIME 1 tablet BEDTIME (route: oral) Med Classific ation: Cardiovas cular Therapy Agents carvedilol 6.25 mg tablet 04-25 00:00: 00 11-10 23:59 :00 No [id number] 1 tablet 2 TIMES DAILY 1 tablet 2 TIMES DAILY (route: oral) Med Classific ation: Cardiovas cular Therapy Agents clonidine 0.2 mg/24 hr weekly transdermal patch 04-25 00:00: 00 11-10 23:59 :00 No [id number] 1 patch, transde rmal weekly WEEKLY 1 patch, transderma l weekly WEEKLY (route: transderma l) Med Classific ation: Cardiovas cular Therapy Agents divalproex 125 mg capsule,del ayed release sprinkle 04-25 00:00: 00 11-10 23:59 :00 No [id number] 2 capsule 3 TIMES DAILY 2 capsule 3 TIMES DAILY (route: oral) Med Classific ation: Central Nervous System Agents hydralazine 25 mg tablet 04-25 00:00: 00 05-12 23:59 :00 No [id number] 3 tablet EVERY 8 HOURS 3 tablet EVERY 8 HOURS (route: oral) Med Classific ation: Cardiovas cular Therapy Agents lisinopril 40 mg tablet 04-25 00:00: 00 11-10 23:59 :00 No [id number] 1 tablet DAILY 1 tablet DAILY (route: oral) Med Classific ation: Cardiovas cular Therapy Agents memantine 10 mg tablet 04-25 00:00: 11-10 23:59 :00 No [id number] 0.5-1 tablet 2 TIMES DAILY 0.5-1 tablet 2 TIMES DAILY (route: oral) Med Classific ation: Cognitive Disorder Therapy olanzapine 5 mg disintegrat ing tablet 04-25 00:00: 00 11-10 23:59 :00 No [id number] 1 tablet 3 TIMES DAILY 1 tablet 3 TIMES DAILY (route: oral) Med Classific ation: Central Nervous System Agents Plavix 75 mg tablet 04-25 00:00: 00 11-10 23:59 :00 No [id number] 1 tablet DAILY 1 tablet DAILY (route: oral) Med Classific ation: Hematolog ical Agents pyridoxine (vitamin B6) 50 mg tablet 04-25 00:00: 00 11-10 23:59 :00 No [id number] 1 tablet DAILY 1 tablet DAILY (route: oral) Med Classific ation: Electroly te Balance-N utritiona l Products hydralazine 25 mg tablet 05-12 00:00: 00 11-10 23:59 :00 No [id number] 1 tablet EVERY 8 HOURS 1 tablet EVERY 8 HOURS (route: oral) Med Classific ation: Cardiovas cular Therapy Agents aspirin 81 mg tablet,josef yed release 04-12 00:00: 00 Yes [id number] 1 tablet DAILY 1 tablet DAILY (route: oral) Med Classific ation: Hematolog ical Agents atorvastati n 40 mg tablet 04-12 00:00: 00 Yes [id number] 1 tablet DAILY 1 tablet DAILY (route: oral) Med Classific ation: Cardiovas cular Therapy Agents carvedilol 6.25 mg tablet 04-12 00:00: 00 Yes [id number] 1 tablet 2 TIMES DAILY 1 tablet 2 TIMES DAILY (route: oral) Med Classific ation: Cardiovas cular Therapy Agents clonidine 0.2 mg/24 hr weekly transdermal patch 04-12 00:00: 00 Yes [id number] 1 patch, transde rmal weekly WEEKLY 1 patch, transderma l weekly WEEKLY (route: transderma l) Med Classific ation: Cardiovas cular Therapy Agents clopidogrel 75 mg tablet 04-12 00:00: 00 Yes [id number] 1 tablet DAILY 1 tablet DAILY (route: oral) Med Classific ation: Hematolog ical Agents hydralazine 25 mg tablet 04-12 00:00: 00 Yes [id number] 1 tablet EVERY 8 HOURS 1 tablet EVERY 8 HOURS (route: oral) Med Classific ation: Cardiovas cular Therapy Agents lisinopril 40 mg tablet 04-12 00:00: 00 Yes [id number] 1 tablet DAILY 1 tablet DAILY (route: oral) Med Classific ation: Cardiovas cular Therapy Agents memantine 10 mg tablet 04-12 00:00: 00 Yes [id number] 1 tablet BEDTIME 1 tablet BEDTIME (route: oral) Med Classific ation: Cognitive Disorder Therapy memantine 5 mg tablet 04-12 00:00: 00 Yes [id number] 1 tablet DAILY 1 tablet DAILY (route: oral) Med Classific ation: Cognitive Disorder Therapy Senna with Docusate Sodium 8.6 mg-50 mg tablet 04-12 00:00: 00 Yes [id number] 2 tablet EVERY PM 2 tablet EVERY PM (route: oral) Med Classific ation: Gastroint estinal Therapy Agents Stool Softener 100 mg capsule 04-12 00:00: 00 Yes [id number] 1 capsule 2 TIMES DAILY 1 capsule 2 TIMES DAILY (route: oral) Med Classific ation: Gastroint estinal Therapy Agents Vitamin B-6 100 mg tablet 04-12 00:00: 00 Yes [id number] 1 tablet DAILY 1 tablet DAILY (route: [...] FROM THE FOLLOWING PHYSICIANS: LUPE KRAFT NP, AIRPLANE PILOT/TREATING PROVIDERS [code = HOME HEALTH AGENCY MAY ACCEPT ORDERS FROM THE FOLLOWING PHYSICIANS: LUPE KRAFT NP, AIRPLANE PILOT/TREATING PROVIDERS] 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 [code = SKILLED NURSE TO INSTRUCT PATIENT/CAREGIVER ON WARNING SIGNS OF CVA, RISK FACTORS, AND METHODS TO MANAGE PRISON EFFECTS OF CVA.] Future Scheduled Test PATIENT [...] MAINTAIN SITUATIONAL AWARENESS AND WILL NOTIFY CLINICAL MECHANICAL DESIGNER AND PHYSICIAN/PROVIDER WITH ANY CHANGE IN CONDITION. [code = SKILLED NURSE TO PERFORM ENVIRONMENTAL SAFETY RISK ASSESSMENT AND FALL RISK ASSESSMENT AND PROVIDE INSTRUCTION TO IMPLEMENT ENVIRONMENTAL SAFETY AND FALL PREVENTION STRATEGIES THROUGHOUT THE CERTIFICATION PERIOD. SKILLED NURSE WILL MAINTAIN SITUATIONAL AWARENESS AND WILL NOTIFY CLINICAL MECHANICAL DESIGNER AND PHYSICIAN/PROVIDER WITH ANY CHANGE IN CONDITION.] [...] CARE WILL BE ESTABLISHED THAT MEETS PATIENT'S RETIREMENT NEEDS AND INCLUDES PATIENT GOAL FOR HOME [...] End Date/Time Encounter Type Admission Type Attending [facility] Care Facility Care Department Encounter ID Discharge Date Discharge Status Discharge Condition Discharge Reason Percent Goals Met 2025-04-12 00:00:00 2025-06-10 00:00:00 Outpatient CICI RAMIREZ [facility] [id number] 78.26
--- OUTSIDE RECORDS SUMMARY | 2025-06-09 19:00 | XMS_ITS | Clinical Summary ---
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) USE OF ANTITHROMBOT ICS/ANTIPLAT ELETS Active [...] 04-02 00:00: 00 04-25 00:00 :00 No [id number] Per instruc tions Per instructio ns (route: oral) Med Classific ation: Cardiovas cular Therapy Agents aspirin 81 mg chewable tablet 04-25 00:00: 00 11-10 23:59 :00 No [id number] 1 tablet DAILY 1 tablet DAILY (route: oral) Med Classific ation: Hematolog ical Agents atorvastati n 40 mg tablet 04-25 00:00: 00 11-10 23:59 :00 No [id number] 1 tablet BEDTIME 1 tablet BEDTIME (route: oral) Med Classific ation: Cardiovas cular Therapy Agents carvedilol 6.25 mg tablet 04-25 00:00: 00 11-10 23:59 :00 No [id number] 1 tablet 2 TIMES DAILY 1 tablet 2 TIMES DAILY (route: oral) Med Classific ation: Cardiovas cular Therapy Agents clonidine 0.2 mg/24 hr weekly transdermal patch 04-25 00:00: 00 11-10 23:59 :00 No [id number] 1 patch, transde rmal weekly WEEKLY 1 patch, transderma l weekly WEEKLY (route: transderma l) Med Classific ation: Cardiovas cular Therapy Agents divalproex 125 mg capsule,del ayed release sprinkle 04-25 00:00: 00 11-10 23:59 :00 No [id number] 2 capsule 3 TIMES DAILY 2 capsule 3 TIMES DAILY (route: oral) Med Classific ation: Central Nervous System Agents hydralazine 25 mg tablet 04-25 00:00: 00 05-12 23:59 :00 No [id number] 3 tablet EVERY 8 HOURS 3 tablet EVERY 8 HOURS (route: oral) Med Classific ation: Cardiovas cular Therapy Agents lisinopril 40 mg tablet 04-25 00:00: 00 11-10 23:59 :00 No [id number] 1 tablet DAILY 1 tablet DAILY (route: oral) Med Classific ation: Cardiovas cular Therapy Agents memantine 10 mg tablet 04-25 00:00: 11-10 23:59 :00 No [id number] 0.5-1 tablet 2 TIMES DAILY 0.5-1 tablet 2 TIMES DAILY (route: oral) Med Classific ation: Cognitive Disorder Therapy olanzapine 5 mg disintegrat ing tablet 04-25 00:00: 00 11-10 23:59 :00 No [id number] 1 tablet 3 TIMES DAILY 1 tablet 3 TIMES DAILY (route: oral) Med Classific ation: Central Nervous System Agents Plavix 75 mg tablet 04-25 00:00: 00 11-10 23:59 :00 No [id number] 1 tablet DAILY 1 tablet DAILY (route: oral) Med Classific ation: Hematolog ical Agents pyridoxine (vitamin B6) 50 mg tablet 04-25 00:00: 00 11-10 23:59 :00 No [id number] 1 tablet DAILY 1 tablet DAILY (route: oral) Med Classific ation: Electroly te Balance-N utritiona l Products hydralazine 25 mg tablet 05-12 00:00: 00 11-10 23:59 :00 No [id number] 1 tablet EVERY 8 HOURS 1 tablet EVERY 8 HOURS (route: oral) Med Classific ation: Cardiovas cular Therapy Agents aspirin 81 mg tablet,josef yed release 04-12 00:00: 00 Yes [id number] 1 tablet DAILY 1 tablet DAILY (route: oral) Med Classific ation: Hematolog ical Agents atorvastati n 40 mg tablet 04-12 00:00: 00 Yes [id number] 1 tablet DAILY 1 tablet DAILY (route: oral) Med Classific ation: Cardiovas cular Therapy Agents carvedilol 6.25 mg tablet 04-12 00:00: 00 Yes [id number] 1 tablet 2 TIMES DAILY 1 tablet 2 TIMES DAILY (route: oral) Med Classific ation: Cardiovas cular Therapy Agents clonidine 0.2 mg/24 hr weekly transdermal patch 04-12 00:00: 00 Yes [id number] 1 patch, transde rmal weekly WEEKLY 1 patch, transderma l weekly WEEKLY (route: transderma l) Med Classific ation: Cardiovas cular Therapy Agents clopidogrel 75 mg tablet 04-12 00:00: 00 Yes [id number] 1 tablet DAILY 1 tablet DAILY (route: oral) Med Classific ation: Hematolog ical Agents hydralazine 25 mg tablet 04-12 00:00: 00 Yes [id number] 1 tablet EVERY 8 HOURS 1 tablet EVERY 8 HOURS (route: oral) Med Classific ation: Cardiovas cular Therapy Agents lisinopril 40 mg tablet 04-12 00:00: 00 Yes [id number] 1 tablet DAILY 1 tablet DAILY (route: oral) Med Classific ation: Cardiovas cular Therapy Agents memantine 10 mg tablet 04-12 00:00: 00 Yes [id number] 1 tablet BEDTIME 1 tablet BEDTIME (route: oral) Med Classific ation: Cognitive Disorder Therapy memantine 5 mg tablet 04-12 00:00: 00 Yes [id number] 1 tablet DAILY 1 tablet DAILY (route: oral) Med Classific ation: Cognitive Disorder Therapy Senna with Docusate Sodium 8.6 mg-50 mg tablet 04-12 00:00: 00 Yes [id number] 2 tablet EVERY PM 2 tablet EVERY PM (route: oral) Med Classific ation: Gastroint estinal Therapy Agents Stool Softener 100 mg capsule 04-12 00:00: 00 Yes [id number] 1 capsule 2 TIMES DAILY 1 capsule 2 TIMES DAILY (route: oral) Med Classific ation: Gastroint estinal Therapy Agents Vitamin B-6 100 mg tablet 04-12 00:00: 00 Yes [id number] 1 tablet DAILY 1 tablet DAILY (route: [...] FROM THE FOLLOWING PHYSICIANS: LUPE KRAFT NP, CHEMICAL PATHOLOGIST/TREATING PROVIDERS [code = HOME HEALTH AGENCY MAY ACCEPT ORDERS FROM THE FOLLOWING PHYSICIANS: LUPE KRAFT NP, CHEMICAL PATHOLOGIST/TREATING PROVIDERS] 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 [code = SKILLED NURSE TO INSTRUCT PATIENT/CAREGIVER ON WARNING SIGNS OF CVA, RISK FACTORS, AND METHODS TO MANAGE CHCF EFFECTS OF CVA.] Future Scheduled Test PATIENT [...] MAINTAIN SITUATIONAL AWARENESS AND WILL NOTIFY CLINICAL POST GRADUATE INTERNSHIP AND PHYSICIAN/PROVIDER WITH ANY CHANGE IN CONDITION. [code = SKILLED NURSE TO PERFORM ENVIRONMENTAL SAFETY RISK ASSESSMENT AND FALL RISK ASSESSMENT AND PROVIDE INSTRUCTION TO IMPLEMENT ENVIRONMENTAL SAFETY AND FALL PREVENTION STRATEGIES THROUGHOUT THE CERTIFICATION PERIOD. SKILLED NURSE WILL MAINTAIN SITUATIONAL AWARENESS AND WILL NOTIFY CLINICAL POST GRADUATE INTERNSHIP AND PHYSICIAN/PROVIDER WITH ANY CHANGE IN CONDITION.] [...] CARE WILL BE ESTABLISHED THAT MEETS PATIENT'S INTERMEDIATE NEEDS AND INCLUDES PATIENT GOAL FOR HOME [...] End Date/Time Encounter Type Admission Type Attending [facility] Care Facility Care Department Encounter ID Discharge Date Discharge Status Discharge Condition Discharge Reason Percent Goals Met 2025-04-12 00:00:00 2025-06-10 00:00:00 Outpatient CICI RAMIREZ [facility] [id number] 78.26
--- OUTSIDE RECORDS SUMMARY | 2025-06-09 19:00 | XMS_ITS | Clinical Summary ---
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 Active [...] 04-02 00:00: 00 04-25 00:00 :00 No [id number] Per instruc tions Per instructio ns (route: oral) Med Classific ation: Cardiovas cular Therapy Agents aspirin 81 mg chewable tablet 04-25 00:00: 00 11-10 23:59 :00 No [id number] 1 tablet DAILY 1 tablet DAILY (route: oral) Med Classific ation: Hematolog ical Agents atorvastati n 40 mg tablet 04-25 00:00: 00 11-10 23:59 :00 No [id number] 1 tablet BEDTIME 1 tablet BEDTIME (route: oral) Med Classific ation: Cardiovas cular Therapy Agents carvedilol 6.25 mg tablet 04-25 00:00: 00 11-10 23:59 :00 No [id number] 1 tablet 2 TIMES DAILY 1 tablet 2 TIMES DAILY (route: oral) Med Classific ation: Cardiovas cular Therapy Agents clonidine 0.2 mg/24 hr weekly transdermal patch 04-25 00:00: 00 11-10 23:59 :00 No [id number] 1 patch, transde rmal weekly WEEKLY 1 patch, transderma l weekly WEEKLY (route: transderma l) Med Classific ation: Cardiovas cular Therapy Agents divalproex 125 mg capsule,del ayed release sprinkle 04-25 00:00: 00 11-10 23:59 :00 No [id number] 2 capsule 3 TIMES DAILY 2 capsule 3 TIMES DAILY (route: oral) Med Classific ation: Central Nervous System Agents hydralazine 25 mg tablet 04-25 00:00: 00 05-12 23:59 :00 No [id number] 3 tablet EVERY 8 HOURS 3 tablet EVERY 8 HOURS (route: oral) Med Classific ation: Cardiovas cular Therapy Agents lisinopril 40 mg tablet 04-25 00:00: 00 11-10 23:59 :00 No [id number] 1 tablet DAILY 1 tablet DAILY (route: oral) Med Classific ation: Cardiovas cular Therapy Agents memantine 10 mg tablet 04-25 00:00: 11-10 23:59 :00 No [id number] 0.5-1 tablet 2 TIMES DAILY 0.5-1 tablet 2 TIMES DAILY (route: oral) Med Classific ation: Cognitive Disorder Therapy olanzapine 5 mg disintegrat ing tablet 04-25 00:00: 00 11-10 23:59 :00 No [id number] 1 tablet 3 TIMES DAILY 1 tablet 3 TIMES DAILY (route: oral) Med Classific ation: Central Nervous System Agents Plavix 75 mg tablet 04-25 00:00: 00 11-10 23:59 :00 No [id number] 1 tablet DAILY 1 tablet DAILY (route: oral) Med Classific ation: Hematolog ical Agents pyridoxine (vitamin B6) 50 mg tablet 04-25 00:00: 00 11-10 23:59 :00 No [id number] 1 tablet DAILY 1 tablet DAILY (route: oral) Med Classific ation: Electroly te Balance-N utritiona l Products hydralazine 25 mg tablet 05-12 00:00: 00 11-10 23:59 :00 No [id number] 1 tablet EVERY 8 HOURS 1 tablet EVERY 8 HOURS (route: oral) Med Classific ation: Cardiovas cular Therapy Agents aspirin 81 mg tablet,josef yed release 04-12 00:00: 00 Yes [id number] 1 tablet DAILY 1 tablet DAILY (route: oral) Med Classific ation: Hematolog ical Agents atorvastati n 40 mg tablet 04-12 00:00: 00 Yes [id number] 1 tablet DAILY 1 tablet DAILY (route: oral) Med Classific ation: Cardiovas cular Therapy Agents carvedilol 6.25 mg tablet 04-12 00:00: 00 Yes [id number] 1 tablet 2 TIMES DAILY 1 tablet 2 TIMES DAILY (route: oral) Med Classific ation: Cardiovas cular Therapy Agents clonidine 0.2 mg/24 hr weekly transdermal patch 04-12 00:00: 00 Yes [id number] 1 patch, transde rmal weekly WEEKLY 1 patch, transderma l weekly WEEKLY (route: transderma l) Med Classific ation: Cardiovas cular Therapy Agents clopidogrel 75 mg tablet 04-12 00:00: 00 Yes [id number] 1 tablet DAILY 1 tablet DAILY (route: oral) Med Classific ation: Hematolog ical Agents hydralazine 25 mg tablet 04-12 00:00: 00 Yes [id number] 1 tablet EVERY 8 HOURS 1 tablet EVERY 8 HOURS (route: oral) Med Classific ation: Cardiovas cular Therapy Agents lisinopril 40 mg tablet 04-12 00:00: 00 Yes [id number] 1 tablet DAILY 1 tablet DAILY (route: oral) Med Classific ation: Cardiovas cular Therapy Agents memantine 10 mg tablet 04-12 00:00: 00 Yes [id number] 1 tablet BEDTIME 1 tablet BEDTIME (route: oral) Med Classific ation: Cognitive Disorder Therapy memantine 5 mg tablet 04-12 00:00: 00 Yes [id number] 1 tablet DAILY 1 tablet DAILY (route: oral) Med Classific ation: Cognitive Disorder Therapy Senna with Docusate Sodium 8.6 mg-50 mg tablet 04-12 00:00: 00 Yes [id number] 2 tablet EVERY PM 2 tablet EVERY PM (route: oral) Med Classific ation: Gastroint estinal Therapy Agents Stool Softener 100 mg capsule 04-12 00:00: 00 Yes [id number] 1 capsule 2 TIMES DAILY 1 capsule 2 TIMES DAILY (route: oral) Med Classific ation: Gastroint estinal Therapy Agents Vitamin B-6 100 mg tablet 04-12 00:00: 00 Yes [id number] 1 tablet DAILY 1 tablet DAILY (route: [...] FROM THE FOLLOWING PHYSICIANS: LUPE KRAFT NP, RAW STOCK MACHINE FEEDER/TREATING PROVIDERS [code = HOME HEALTH AGENCY MAY ACCEPT ORDERS FROM THE FOLLOWING PHYSICIANS: LUPE KRAFT NP, RAW STOCK MACHINE FEEDER/TREATING PROVIDERS] 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 [code = SKILLED NURSE TO INSTRUCT PATIENT/CAREGIVER ON WARNING SIGNS OF CVA, RISK FACTORS, AND METHODS TO MANAGE FPC EFFECTS OF CVA.] Future Scheduled Test PATIENT [...] MAINTAIN SITUATIONAL AWARENESS AND WILL NOTIFY CLINICAL BEEHIVE KILN SUPERVISOR AND PHYSICIAN/PROVIDER WITH ANY CHANGE IN CONDITION. [code = SKILLED NURSE TO PERFORM ENVIRONMENTAL SAFETY RISK ASSESSMENT AND FALL RISK ASSESSMENT AND PROVIDE INSTRUCTION TO IMPLEMENT ENVIRONMENTAL SAFETY AND FALL PREVENTION STRATEGIES THROUGHOUT THE CERTIFICATION PERIOD. SKILLED NURSE WILL MAINTAIN SITUATIONAL AWARENESS AND WILL NOTIFY CLINICAL BEEHIVE KILN SUPERVISOR AND PHYSICIAN/PROVIDER WITH ANY CHANGE IN CONDITION.] [...] CARE WILL BE ESTABLISHED THAT MEETS PATIENT'S HALFWAY NEEDS AND INCLUDES PATIENT GOAL FOR HOME [...] End Date/Time Encounter Type Admission Type Attending [facility] Care Facility Care Department Encounter ID Discharge Date Discharge Status Discharge Condition Discharge Reason Percent Goals Met 2025-04-12 00:00:00 2025-06-10 00:00:00 Outpatient CICI RAMIREZ [facility] [id number] 78.26
--- OUTSIDE RECORDS SUMMARY | 2025-06-09 19:00 | XMS_ITS | Clinical Summary ---
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) USE OF ANTITHROMBOT ICS/ANTIPLAT ELETS Active [...] 04-02 00:00: 00 04-25 00:00 :00 No [id number] Per instruc tions Per instructio ns (route: oral) Med Classific ation: Cardiovas cular Therapy Agents aspirin 81 mg chewable tablet 04-25 00:00: 00 11-10 23:59 :00 No [id number] 1 tablet DAILY 1 tablet DAILY (route: oral) Med Classific ation: Hematolog ical Agents atorvastati n 40 mg tablet 04-25 00:00: 00 11-10 23:59 :00 No [id number] 1 tablet BEDTIME 1 tablet BEDTIME (route: oral) Med Classific ation: Cardiovas cular Therapy Agents carvedilol 6.25 mg tablet 04-25 00:00: 00 11-10 23:59 :00 No [id number] 1 tablet 2 TIMES DAILY 1 tablet 2 TIMES DAILY (route: oral) Med Classific ation: Cardiovas cular Therapy Agents clonidine 0.2 mg/24 hr weekly transdermal patch 04-25 00:00: 00 11-10 23:59 :00 No [id number] 1 patch, transde rmal weekly WEEKLY 1 patch, transderma l weekly WEEKLY (route: transderma l) Med Classific ation: Cardiovas cular Therapy Agents divalproex 125 mg capsule,del ayed release sprinkle 04-25 00:00: 00 11-10 23:59 :00 No [id number] 2 capsule 3 TIMES DAILY 2 capsule 3 TIMES DAILY (route: oral) Med Classific ation: Central Nervous System Agents hydralazine 25 mg tablet 04-25 00:00: 00 05-12 23:59 :00 No [id number] 3 tablet EVERY 8 HOURS 3 tablet EVERY 8 HOURS (route: oral) Med Classific ation: Cardiovas cular Therapy Agents lisinopril 40 mg tablet 04-25 00:00: 00 11-10 23:59 :00 No [id number] 1 tablet DAILY 1 tablet DAILY (route: oral) Med Classific ation: Cardiovas cular Therapy Agents memantine 10 mg tablet 04-25 00:00: 11-10 23:59 :00 No [id number] 0.5-1 tablet 2 TIMES DAILY 0.5-1 tablet 2 TIMES DAILY (route: oral) Med Classific ation: Cognitive Disorder Therapy olanzapine 5 mg disintegrat ing tablet 04-25 00:00: 00 11-10 23:59 :00 No [id number] 1 tablet 3 TIMES DAILY 1 tablet 3 TIMES DAILY (route: oral) Med Classific ation: Central Nervous System Agents Plavix 75 mg tablet 04-25 00:00: 00 11-10 23:59 :00 No [id number] 1 tablet DAILY 1 tablet DAILY (route: oral) Med Classific ation: Hematolog ical Agents pyridoxine (vitamin B6) 50 mg tablet 04-25 00:00: 00 11-10 23:59 :00 No [id number] 1 tablet DAILY 1 tablet DAILY (route: oral) Med Classific ation: Electroly te Balance-N utritiona l Products hydralazine 25 mg tablet 05-12 00:00: 00 11-10 23:59 :00 No [id number] 1 tablet EVERY 8 HOURS 1 tablet EVERY 8 HOURS (route: oral) Med Classific ation: Cardiovas cular Therapy Agents aspirin 81 mg tablet,josef yed release 04-12 00:00: 00 Yes [id number] 1 tablet DAILY 1 tablet DAILY (route: oral) Med Classific ation: Hematolog ical Agents atorvastati n 40 mg tablet 04-12 00:00: 00 Yes [id number] 1 tablet DAILY 1 tablet DAILY (route: oral) Med Classific ation: Cardiovas cular Therapy Agents carvedilol 6.25 mg tablet 04-12 00:00: 00 Yes [id number] 1 tablet 2 TIMES DAILY 1 tablet 2 TIMES DAILY (route: oral) Med Classific ation: Cardiovas cular Therapy Agents clonidine 0.2 mg/24 hr weekly transdermal patch 04-12 00:00: 00 Yes [id number] 1 patch, transde rmal weekly WEEKLY 1 patch, transderma l weekly WEEKLY (route: transderma l) Med Classific ation: Cardiovas cular Therapy Agents clopidogrel 75 mg tablet 04-12 00:00: 00 Yes [id number] 1 tablet DAILY 1 tablet DAILY (route: oral) Med Classific ation: Hematolog ical Agents hydralazine 25 mg tablet 04-12 00:00: 00 Yes [id number] 1 tablet EVERY 8 HOURS 1 tablet EVERY 8 HOURS (route: oral) Med Classific ation: Cardiovas cular Therapy Agents lisinopril 40 mg tablet 04-12 00:00: 00 Yes [id number] 1 tablet DAILY 1 tablet DAILY (route: oral) Med Classific ation: Cardiovas cular Therapy Agents memantine 10 mg tablet 04-12 00:00: 00 Yes [id number] 1 tablet BEDTIME 1 tablet BEDTIME (route: oral) Med Classific ation: Cognitive Disorder Therapy memantine 5 mg tablet 04-12 00:00: 00 Yes [id number] 1 tablet DAILY 1 tablet DAILY (route: oral) Med Classific ation: Cognitive Disorder Therapy Senna with Docusate Sodium 8.6 mg-50 mg tablet 04-12 00:00: 00 Yes [id number] 2 tablet EVERY PM 2 tablet EVERY PM (route: oral) Med Classific ation: Gastroint estinal Therapy Agents Stool Softener 100 mg capsule 04-12 00:00: 00 Yes [id number] 1 capsule 2 TIMES DAILY 1 capsule 2 TIMES DAILY (route: oral) Med Classific ation: Gastroint estinal Therapy Agents Vitamin B-6 100 mg tablet 04-12 00:00: 00 Yes [id number] 1 tablet DAILY 1 tablet DAILY (route: [...] FROM THE FOLLOWING PHYSICIANS: LUPE KRAFT NP, SUPERVISOR BLOOD DONOR RECRUITERS/TREATING PROVIDERS [code = HOME HEALTH AGENCY MAY ACCEPT ORDERS FROM THE FOLLOWING PHYSICIANS: LUPE KRAFT NP, SUPERVISOR BLOOD DONOR RECRUITERS/TREATING PROVIDERS] Future 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 [code = SKILLED NURSE TO INSTRUCT PATIENT/CAREGIVER ON WARNING SIGNS OF CVA, RISK FACTORS, AND METHODS TO MANAGE CARE HOME EFFECTS OF CVA.] Future Scheduled Test PATIENT [...] MAINTAIN SITUATIONAL AWARENESS AND WILL NOTIFY CLINICAL CHIEF INVESTMENT OFFICER AND PHYSICIAN/PROVIDER WITH ANY CHANGE IN CONDITION. [code = SKILLED NURSE TO PERFORM ENVIRONMENTAL SAFETY RISK ASSESSMENT AND FALL RISK ASSESSMENT AND PROVIDE INSTRUCTION TO IMPLEMENT ENVIRONMENTAL SAFETY AND FALL PREVENTION STRATEGIES THROUGHOUT THE CERTIFICATION PERIOD. SKILLED NURSE WILL MAINTAIN SITUATIONAL AWARENESS AND WILL NOTIFY CLINICAL CHIEF INVESTMENT OFFICER AND PHYSICIAN/PROVIDER WITH ANY CHANGE IN CONDITION.] [...] CARE WILL BE ESTABLISHED THAT MEETS PATIENT'S CARE HOME NEEDS AND INCLUDES PATIENT GOAL FOR HOME [...] End Date/Time Encounter Type Admission Type Attending [facility] Care Facility Care Department Encounter ID Discharge Date Discharge Status Discharge Condition Discharge Reason Percent Goals Met 2025-04-12 00:00:00 2025-06-10 00:00:00 Outpatient CICI RAMIREZ [facility] [id number]
== END 2025-06-02 16:03 | disposition hospice, inpatient (51) | DRG 871 ==
LOC: CHSED 06:45 → CHS2ND 08:08
PROVIDERS: Family Medicine; Nurse Practitioner Family; Admitting Provider Internal Medicine; Emergency Provider Emergency Medicine; Visit Provider Internal Medicine
DX: I21.4 Non-ST elevation (NSTEMI) myocardial infarction; I10 Essential (primary) hypertension; A41.9 Sepsis, unspecified organism; N19 Unspecified kidney failure; R41.82 Altered mental status, unspecified; R53.83 Other fatigue; Z86.73 Personal history of transient ischemic attack (TIA), and cerebral infarction without residual deficits; A41.51 Sepsis due to Escherichia coli [E. coli]; J96.01 Acute respiratory failure with hypoxia; R65.21 Severe sepsis with septic shock; N39.0 Urinary tract infection, site not specified; N17.9 Acute kidney failure, unspecified; B96.20 Unspecified Escherichia coli [E. coli] as the cause of diseases classified elsewhere; Z51.5 Encounter for palliative care; Z66 Do not resuscitate; Z87.891 Personal history of nicotine dependence; Z79.02 Long term (current) use of antithrombotics/antiplatelets; Z74.01 Bed confinement status
CPT/HCPCS: 36415; 70450; 71045; 80048; 80053; 81001; 83605; 84484; 85025; 85027; 85610; 85730; 86140; 87040; 87086; 87186; 93005; 96365; 96375; 99285; A9270; J0696; J2270; J3010; J7030

== ENCOUNTER 2025-06-02 16:06 | HOS | payer OTHER, SELFPAY ==
[2025-06-02 16:30] VITALS: O2SAT 95
[2025-06-02 16:33] VITALS: O2SAT 95
[2025-06-02 16:36] VITALS: BMI 34.5
[2025-06-02] MEDS: LORazepam (*CRX) 2 MG/ML ORAL CONCENTRATE 1 ML SYRINGE 1 MG SUBLINGUAL ×3 (17:29→22:58)
[2025-06-02] MEDS: MORPHINE SULFATE (*CRX) 2 MG/ML INJ IV PUSH ×3 (18:05→22:07)
--- NOTE | 2025-06-02 19:09 | ADMGEN ---
This patient, Ralph Greer, was admitted to 2nd Floor Room 204-1. Patient/family oriented to hospital policies and general routines including ID bracelet, bed and alarms, visiting hours, pain management, procedures, bathroom and other care routines, personal items, smoking policy, room service/diet, and visiting hours. Patient/Family are encouraged to report perceived risks to care and to ask questions if they do not understand what they are told or what they should do. Pt was previously hospital inpatient and order/status changed to hospice @ 1606.
[2025-06-02 19:14] VITALS: BP 113/61; PULSE 73; RESP 30; TEMP 36.8; O2SAT 95
[2025-06-03] MEDS: MORPHINE SULFATE (*CRX) 2 MG/ML INJ IV PUSH ×12 (00:04→22:06)
[2025-06-03] MEDS: LORazepam (*CRX) 2 MG/ML ORAL CONCENTRATE 1 ML SYRINGE 1 MG SUBLINGUAL ×7 (01:00→22:59)
[2025-06-03 05:30] VITALS: O2SAT 95
[2025-06-03 08:00] VITALS: BP 134/52; PULSE 64; RESP 25; TEMP 36.6; O2SAT 92
--- NOTE | 2025-06-03 08:54 | P.HP_ITS ---
H&P: HPI History of Present Illness Date/Time: 06/03/25 08:54 Chief Complaint: Unresponsive Narrative: Patient was a 79-year-old male who had been brought to the emergency room to [facility] due to being unresponsive. patient was initially found to have sepsis with septic shock secondary to urinary tract infection with acute renal failure uremic as well as acute respiratory failure with hypoxia and non STEMI. discussion was had provider at that time as well as ER physician at which time family requested no extensive interventions and to allow for natural . Patient was admitted to the medical unit as DNR/ DNI on comfort measures with fluids and IV antibiotic therapy over 24 hour period. the following day patient had no improvement with worsening acute renal failure and remained unresponsive at which time family requested a consult to hospice. patient was discharged to inpatient hospice under [facility]. patient is seen at this time still remains unresponsive respirations more controlled and appears comfortable is patient is uremic. Review of Systems Review of Systems: ROS unobtainable: Yes unobtainable due to medical condition PMFSH Past Medical History Medical History (Updated 06/02/25 @ 15:39 by Alyce Anderson APRN) Benign essential hypertension No active medical problems Surgical History Surgical History No history of previous surgery Family History Family History (Updated 06/01/25 @ 09:05 by JIMMY POOL RN) Other Unknown family medical history Social History Social History Smoking status: Former smoker Second hand tobacco smoke exposure: No Alcohol intake: former Substance use: never Substance use type: does not use Lack of Transportation: No Lack of Food: Never True Current Housing: I Have Housing Concerned About Future Housing: No Difficulty Paying Gas/Electric Bills: No Difficulty Paying for Meds: No Currently Unemployed: No Education: Don't Know Difficulty w/ Childcare or Family Care: No Living arrangements: with family Occupation/Education: retired Gender identity (if verbalized by the patient): Male Sexual Orientation (if Verbalized by the Patient): Straight or Heterosexual Spiritual care concerns: No Meds Home Medications and Allergies Home Medications ?Medication ?Instructions ?Recorded ?Confirmed ?Type atropine 1 % eye drops 1 drp sublingual Q4H PRN 06/02/25 Rx Secretions #1 mL lorazepam 2 mg/mL oral concentrate 1 mg (0.5 mL) subli ngual Q2H PRN 06/02/25 06/02/25 Rx (Lorazepam Intensol) Anxiety #1 mL morphine 2 mg/mL intravenous 2 mg IV PUSH Q2H #1 mL 06/02/25 Rx syringe Allergies Allergy/AdvReac Type Severity Reaction Status Date / Time tramadol Allergy Unknown Unknown Verified 06/01/25 05:00 Vital Signs Vital Signs - 24 hr 06/02/25 16:30 06/02/25 16:33 06/02/25 19:14 Temperature 98.2 F Pulse Rate 73 Respiratory Rate 30 H Blood Pressure 113/61 Pulse Oximetry 95 95 95 Oxygen Delivery Nasal Cannula Nasal Cannula Oxygen Flow Rate 3 3 06/03/25 08:00 Temperature 97.9 F Pulse Rate 64 Respiratory Rate 25 H Blood Pressure 134/52 L Pulse Oximetry 92 Oxygen Delivery Nasal Cannula Oxygen Flow Rate 3 Exam Const: General: comfortable HENMT: Mouth: Yes dry mucous membranes Neck: Neck: supple Resp: Effort & Inspection: normal respiratory effort Auscultation: diminished lung sounds Cardio: Rhythm: abnormal rhythm GI: GI Palp: Yes Soft to palpation and Yes Guarding due to palpation present (GI) Auscultation: normal bowel sounds Urinary Catheter: Urinary Catheter: patent and draining and other ( uremic old blood in Madden catheter) Skin: Other: Ashen in color Neuro: Other: unresponsive Extrem: General: edema and pedal edema Psych: Other: obtundnate H&P: Results Labs Labs: Short CBC 06/01/25 Range/Units 04:54 WBC 18.0 H (4.8-10.8) K/mm3 Hgb 11.8 L (12.4-15.3) g/dL Hct 35.3 L (37.0-46.0) % Plt Count 186 (150-420) K/mm3 BMP 06/01/25 04:54 Sodium 142 Potassium 4.5 Chloride 108 H Carbon Dioxide 21 L BUN 37 H Creatinine 3.80 H Glucose 110 Calcium 8.8 Cardiac Enzymes 06/01/25 06/01/25 Range/Units 04:54 12:00 Troponin I 1.180 H* 1.490 H* D (0.000-0.034) ng/mL Liver Function 06/01/25 Range/Units 04:54 Total Bilirubin 1.2 (0.2-1.3) mg/dL AST 68 H (17-59) U/L ALT 40 (6-50) U/L Alkaline Phosphatase 99 (38-126) U/L Albumin 3.5 (3.5-5.1) g/dL Urine 06/01/25 Range/Units 05:34 Urine Color Light yellow (Yellow) Urine Appearance Clear (Clear) Urine pH 5.5 (5.0-8.0) Ur Specific [place] 1.015 (1.010-1.020) Urine Protein Negative (Negative) Urine Glucose (UA) Negative (Negative) Assessment and Plan Assessment and plan (1) Comfort measures only status: Code(s): Z51.5 - Encounter for palliative care Status: Acute Assessment and Plan: [facility] evaluated and patient was discharged to inpatient hospice care for acute respiratory failure with hypoxia and sepsis with septic shock as well as acute renal failure. * morphine 2 mg/2hr * atropine for secretions * oral Ativan for anxiety * Madden catheter placed * oxygen for comfort only (2) Sepsis: Code(s): A41.9 - Sepsis, unspecified organism Status: Acute (3) Renal failure: Code(s): N19 - Unspecified kidney failure Status: Acute (4) Non-ST elevation (NSTEMI) myocardial infarction: Code(s): I21.4 - Non-ST elevation (NSTEMI) myocardial infarction Status: Acute Quality If No VTE Prophylaxis Answer both mechanical and pharmacologic: Reason no mechanical VTE proph: medical contraindication Reason no pharmacologic proph: medical contraindication Pharmacological Therapy Reason anticoag or antiplatelet not ordered by end of day 2: medical cont raindication -Patient's previous records reviewed on admission -discussed all findings and current treatment plan with patient/Family/POA Dictation performed by [employer] direct speech recognition software, therefore fruit rancher variants and typographical errors may occur. Hospitalist KEILY Advance Care Plan I have confirmed that the patient's Advanced Care Plan is present, code status is documented, or surrogate decision maker is listed in patient medical record.: Yes Medication Reconciliation I have utilized all available resources to obtain, update and review the patients current medications (includes all prescriptions, OTC, herbals, cannabis , and nutritional supplements).: Yes The patient is not eligible for med reconciliation; the patient is in a emergent medical situation where delaying treatment would jeopardize the patients health.: No
--- NOTE | 2025-06-03 09:07 | PC.NURSE ---
Patients at bedside at this time.
[2025-06-03 15:00] VITALS: PULSE 97; RESP 30
[2025-06-04] MEDS: LORazepam (*CRX) 2 MG/ML ORAL CONCENTRATE 1 ML SYRINGE 1 MG SUBLINGUAL ×5 (01:12→09:16)
[2025-06-04] MEDS: MORPHINE SULFATE (*CRX) 2 MG/ML INJ IV PUSH ×5 (02:18→08:10)
[2025-06-04 05:30] VITALS: O2SAT 92
[2025-06-04 06:29] VITALS: PULSE 89; RESP 29; O2SAT 48
--- NOTE | 2025-06-04 06:35 | PC.NURSE ---
Attempted to reach Ivis Greer regarding a change in pt's condition but no answer. Message left on her voice mail.
--- NOTE | 2025-06-04 06:40 | PC.NURSE ---
Pippa Iniguez, pt's daughter notified of a change in her father's condition. She said she would be coming in as quickly as possible this AM.
[2025-06-04 07:00] VITALS: BP 124/61; PULSE 99; RESP 28; O2SAT 65
[2025-06-04] MEDS: MORPHINE SULFATE (*CRX) 2 MG/ML INJ 1 MG IV PUSH (07:15)
--- NOTE | 2025-06-04 09:20 | P.PNIM_ITS ---
Progress Note: A&P Assessment and Plan (1) Comfort measures only status: Code(s): Z51.5 - Encounter for palliative care Status: Acute Assessment and Plan: [facility] evaluated and patient was discharged to inpatient hospice care for acute respiratory failure with hypoxia and sepsis with septic shock as well as acute renal failure. * morphine 2 mg/2hr * atropine for secretions * oral Ativan for anxiety * Madden catheter placed * oxygen for comfort only (2) Sepsis: Code(s): A41.9 - Sepsis, unspecified organism Status: Acute (3) Renal failure: Code(s): N19 - Unspecified kidney failure Status: Acute (4) Non-ST elevation (NSTEMI) myocardial infarction: Code(s): I21.4 - Non-ST elevation (NSTEMI) myocardial infarction Status: Acute Subjective Date/time seen: 06/04/25 09:20 Interval history: 06/04/2025: Review of Systems Review of Systems: ROS unobtainable: Yes unobtainable due to medical condition Exam Const: General: comfortable HENMT: Mouth: Yes dry mucous membranes Neck: Neck: supple Resp: Effort & Inspection: normal respiratory effort Auscultation: diminished lung sounds Cardio: Rhythm: abnormal rhythm GI: Auscultation: normal bowel sounds Urinary Catheter: Urinary Catheter: patent and draining and other ( uremic old blood in Madden catheter) Skin: Other: Ashen in color Neuro: Other: unresponsive Extrem: General: edema and pedal edema Psych: Other: obtundnate Objective Data Vital Signs Vital Signs: Vital Signs - 24 hr 06/03/25 15:00 06/04/25 06:29 Pulse Rate 97 89 Respiratory Rate 30 H 29 H Pulse Oximetry 48 L Oxygen Delivery Nasal Cannula Oxygen Flow Rate 3 Intake/Output Intake/Output: Intake & Output 06/01/25 06/02/25 06/03/25 06/04/25 23:59 23:59 23:59 23:59 Intake Total 60 Output Total 650 Balance -590 Meds/Results Medications: Active Medications Generic Name Dose Route Start Last Admin Trade Name Freq PRN Reason Stop Dose Admin Acetaminophen 650 mg 06/02/25 16:32 Acetaminophen 650 Mg Suppository RECTAL Q6H PRN Mild Pain (1-3) or Fever Acetaminophen 650 mg 06/02/25 16:32 Acetaminophen 325 Mg Tablet PO Q6H PRN Mild Pain (1-3) or Fever Atropine Sulfate 1 drop 06/02/25 16:32 06/04/25 06:27 Atropine Sulfate 1% Ophth Soln 5 Ml Bottle SUBLINGUAL 1 drop Q4H PRN Administration Secretions Lorazepam 0.5 mg 06/03/25 15:41 Lorazepam (*Crx) 2 Mg/Ml Oral Concentrate 1 Ml Syringe SUBLINGUAL Q1HR PRN Anxiety Lorazepam 1 mg 06/03/25 17:00 06/04/25 09:16 Lorazepam (*Crx) 2 Mg/Ml Oral Concentrate 1 Ml Syringe SUBLINGUAL 1 mg Q2H LAURI Administration Morphine Sulfate 2 mg 06/02/25 18:00 06/04/25 08:10 Morphine Sulfate (*Crx) 2 Mg/Ml Inj IV PUSH 2 mg Q2HR LAURI Administration Morphine Sulfate 1 mg 06/03/25 15:40 06/04/25 07:15 Morphine Sulfate (*Crx) 2 Mg/Ml Inj IV PUSH 1 mg Q1H PRN Administration breakthrough pain Ondansetron HCl 4 mg 06/02/25 16:32 Ondansetron Inj 4 Mg/2 Ml Vial IV PUSH Q6H PRN Nausea And Vomiting Quality If No VTE Prophylaxis Answer both mechanical and pharmacologic: Reason no mechanical VTE proph: medical contraindication Reason no pharmacologic proph: medical contraindication -Patient's previous records reviewed on admission -discussed all findings and current treatment plan with Family/POA Dictation performed by [employer] direct speech recognition software, therefore analog design engineer variants and typographical errors may occur. Hospitalist MIPS Advance Care Plan I have confirmed that the patient's Advanced Care Plan is present, code status is documented, or surrogate decision maker is listed in patient medical record.: Yes Medication Reconciliation I have utilized all available resources to obtain, update and review the patie nts current medications (includes all prescriptions, OTC, herbals, cannabis, and nutritional supplements).: Yes The patient is not eligible for med reconciliation; the patient is in a emergent medical situation where delaying treatment would jeopardize the patients health.: No
[2025-06-04] MEDS: diazePAM INJ (*CRX) 10 MG/2 ML SYRINGE 5 MG IV PUSH (09:40)
--- NOTE | 2025-06-04 10:08 | PC.NURSE ---
Called to the room by pts daughter. Pt had no visible respirations. Absent heart sounds upon auscultation for 1 minute. Confirmed by YOLANDA Lopez.
--- NOTE | 2025-06-04 10:17 | P.DN_ITS ---
Discharge Summary Date and Time Date of : 06/04/25 Time of : 10:08 Provider Pronounced By: 2 RNs Name of First RN That Pronounced: Ivis Name of Second RN That Pronounced: Jessica Probable Cause of Probable Cause of : Septic shock with acute renal failure and acute respiratory failure with hypoxia Summary Hospital Course: Patient was a 79-year-old male who had been brought to the emergency room to [facility] due to being unresponsive. patient was initially found to have sepsis with septic shock secondary to urinary tract infection with acute renal failure uremic as well as acute respiratory failure with hypoxia and non STEMI. discussion was had provider at that time as well as ER physician at which time family requested no extensive interventions and to allow for natural . Patient was admitted to the medical unit as DNR/ DNI on comfort measures with fluids and IV antibiotic therapy over 24 hour period. the following day patient had no improvement with worsening acute renal failure and remained unresponsive at which time family requested a consult to hospice. patient was discharged to inpatient hospice under [facility]. patient is seen at this time still remains unresponsive respirations more controlled and appears comfortable is patient is uremic. Patient evaluated this morning with show respirations and unresponsive. Patient's family at bedside. Time of 10:08 a.m.. Additional Data Confirmation of as documented by pronouncing clinician: Pupillary Reflex (absent), Palpable Pulses (absent), Response to Stimuli (absent), Heart Tones (absent) and Breath Sounds (absent) Family: at bedside Additional persons at bedside: other (hospice services) Name of Provider Notified: Alyce Anderson [employer] Time Provider Notified: 10:08 Was code activated?: No Provider Requests Autopsy: No Family Requests Autopsy: No Director Of Research Notified: Yes Advance directives: Yes Hospice patient?: Yes
--- NOTE | 2025-06-04 12:00 | PC.NURSE ---
[facility] contacted at noon. Maribell states she is contacting the [employer] [facility] consultant and they will come pick patient up as soon as possible.
--- NOTE | 2025-06-04 12:49 | PC.NURSE ---
[facility] here to transport patient. Release of Body form signed by used car lot attendant.
== END 2025-06-04 10:08 | disposition expired | DRG 951 ==
PROVIDERS: Admitting Provider Internal Medicine; PCP Family Medicine; Visit Provider Internal Medicine
DX: Z51.5 Encounter for palliative care (principal); A41.9 Sepsis, unspecified organism; R65.21 Severe sepsis with septic shock; J96.01 Acute respiratory failure with hypoxia; I21.4 Non-ST elevation (NSTEMI) myocardial infarction; N39.0 Urinary tract infection, site not specified; N17.9 Acute kidney failure, unspecified; I10 Essential (primary) hypertension; Z66 Do not resuscitate
CPT/HCPCS: A9270; J2270; J3360